=== PATIENT | female | born 1960 | race Caucasian/White ===

== ENCOUNTER 2018-04-10 17:39 | Inpatient (IN) ==
--- NOTE | 2018-04-10 23:13 | P.HPCC ---
History of Present Illness Service: Critical Care Medicine Primary Care Physician: UNKNOWN Chief Complaint: Back and leg pain History of Present Illness: 57-year-old female with past medical history of COPD, diabetes, seizure disorder, hepatitis C, lung cancer status post right upper lobectomy and chemotherapy completed in 2011, ongoing tobacco abuse, chronic pancreatitis , history of alcohol dependence now in remission since 1995. She was transferred to [facility] from [place] due to the concern for cauda equina. She was admitted at [place] on 04/09 after presenting with 2-day history of right-sided back pain radiating down her right leg. She states that she woke up with the pain. Denies trauma. Says she has been able to ambulate on it even while at [facility] but when she is trying to lifted up her leg to get into bed she uses her arms to assist with lifting. She denies urinary retention or incontinence, fecal incontinence, saddle paresthesias. She denies history of similar pain. Denies headache. Had temp 101 upon admission to [place]. She has been on Levaquin for UTI. - Diagnosis (1) Neuropathy (2) Back pain (3) Diabetes (4) COPD (chronic obstructive pulmonary disease) (5) Tobacco abuse (6) Mild protein-energy malnutrition (7) HTN (hypertension) (8) Chronic pancreatitis (9) Hx of cancer of lung Inpatient Certification: I certify that the inpatient services were ordered in accordance with Medicare regulations governing the order. This includes certification that hospital inpatient services are reasonable and necessary and in the case of services not specified as inpatient-only under 42 CFR 419.22(n), that they are appropriately provided as inpatient services in accordance to with the 2-midnight benchmark under 43 CFR 412.3(e) Review of Systems All other systems reviewed negative except as stated in HPI [facility] - History History Provided By: Patient - Medical History Medical History: Medical History (Last Updated 04/11/18 @ 06:45 by Marcie Crespo MD) Anxiety COPD (chronic obstructive pulmonary disease) Chronic pancreatitis Diabetes mellitus Hepatitis C Hx of cancer of lung Seizure disorder Tobacco abuse - Surgical History Surgical History: Surgical History (Last Updated 04/11/18 @ 06:47 by Marcie Crespo MD) H/O exploratory laparotomy H/O resection of small bowel History of partial pancreatectomy History of splenectomy S/P lobectomy of lung - Family History Family History: Family History (Last Updated 04/11/18 @ 00:32 by Marcie Crespo MD) Mother Stroke Dementia Father CAD (coronary artery disease) - Tobacco History Tobacco Use In Past 30 Days: Yes () Smoking Status: Current every day smoker Tobacco Type: Cigarettes - Alcohol History How Often Do You Have a Drink Containing Alcohol: Never - Substance Use Type Alcohol Status: Sustained Remission Comment: alcohol abuse years ago, quit after pancreatitis treatment. Medications and Allergies Allergies Allergy/AdvReac Type Severity Reaction Status Date / Time acetaminophen [From Tylenol] Allergy Intermediate Gastrointestinal Verified 23:45 Upset tramadol Allergy Intermediate Seizures Verified 04/10/18 23:45 Home Medications Medication Instructions Recorded Confirmed Type Multi Vitamin 1 tab/day 04/10/18 History clonazepam 0.5 mg BID 04/10/18 04/10/18 History trazodone 100 mg 04/10/18 History Results - Labs CBC & Chem 7: 04/19/18 07:08 04/20/18 05:57 Exam Vital signs: Intake & Output 04/10/18 04/10/18 04/11/18 06:59 18:59 06:59 Weight 39.9 kg Other: Weight On Admission 39.9 kg Narrative: GENERAL: Undernourished female alert and interactive sitting up in bed. SKIN: Warm and dry. HEAD: Atraumatic. Normocephalic. EYES: Pupils equal and round, reactive. . No scleral icterus. No injection or drainage. ENT: No nasal bleeding or discharge. Mucous membranes pink and moist. NECK: Trachea midline. No JVD. CARDIOVASCULAR: Regular rate and rhythm. No murmurs rubs or gallops. RESPIRATORY: No accessory muscle use. Clear to auscultation. Breath sounds equal bilaterally. On RA. GASTROINTESTINAL: Abdomen soft, non-tender, nondistended. BS present. MUSCULOSKELETAL: Extremities without clubbing, cyanosis, or edema. No obvious deformities. NEUROLOGICAL: Awake and alert. No obvious cranial nerve deficits. Points lateral to L3-L5 on the right as location of pain, radiating along anterior thigh. No erythema, warmth, fluctuance. Pain appears to limit strength exam on the right but 4+/5 R hip flexor/extensor. 5/5 R ankle dorsiflexion, 4+/5 R ankle plantar flexion, 4+ dorsiflexion right first toe. 5/5 throughout LLE and BUE. Sensation intact throughout. Sensation intact perineum. +rectal tone. Caprini VTE Risk Assessment Caprini VTE Risk Assessment: Moderate/High Risk (score >= 2) Caprini Risk Assessment Model: Point Value = 1 Point Value = 2 Point Value = 3 Point Value = 5 Age 41-60 Minor surgery BMI > 25 kg/m2 Swollen legs Varicose veins or History of unexplained or recurrent spontaneous Oral contraceptives or hormone replacement Sepsis (< 1 month) Serious lung disease, including pneumonia (< 1 month) Abnormal pulmonary function Acute myocardial infarction Congestive heart failure (< 1 month) History of inflammatory bowel disease Medical patient at bed rest Age 61-74 Arthroscopic surgery Major open surgery (> 45 min) Laparoscopic surgery (> 45 min) Malignancy Confined to bed (> 72 hours) Immobilizing plaster cast Central venous access Age >= 75 History of VTE Family history of VTE Factor V Leiden Prothrombin [id number] Lupus anticoagulant Anticardiolipin antibodies Elevated serum homocysteine Heparin-induced thrombocytopenia Other congenital or acquired thrombophilia Stroke (< 1 month) Elective arthroplasty Hip, pelvis, or leg fracture Acute spinal cord injury (< 1 month) Prophylaxis Regimen: Total Risk Factor Score Risk Level Prophylaxis Regimen 0-1 Low Early ambulation 2 Moderate Order ONE of the following: *Sequential Compression Device (SCD) *Heparin 5000 units SQ BID 3-4 Higher Order ONE of the following medications: *Heparin 5000 units SQ TID *Enoxaparin/Lovenox 40 mg SQ daily (WT < 150 kg, CrCl > 30 mL/min) *Enoxaparin/Lovenox 30 mg SQ daily (WT < 150 kg, CrCl > 10-29 mL/min) *Enoxaparin/Lovenox 30 mg SQ BID (WT < 150 kg, CrCl > 30 mL/min) AND/OR *Sequential Compression Device (SCD) 5 or more Highest Order ONE of the following medications: *Heparin 5000 units SQ TID (Preferred with Epidurals) *Enoxaparin/Lovenox 40 mg SQ daily (WT < 150 kg, CrCl > 30 mL/min) *Enoxaparin/Lovenox 30 mg SQ daily (WT < 150 kg, CrCl > 10-29 mL/min) *Enoxaparin/Lovenox 30 mg SQ BID (WT < 150 kg, CrCl > 30 mL/min) AND *Sequential Compression Device (SCD) Assessment and Plan - Problem List (1) Neuropathy Code(s): G62.9 - Polyneuropathy, unspecified Status: Chronic (2) Back pain Code(s): M54.9 - Dorsalgia, unspecified Status: Acute (3) Diabetes Code(s): E11.9 - Type 2 diabetes mellitus without complications Status: Chronic (4) COPD (chronic obstructive pulmonary disease) Code(s): J44.9 - Chronic obstructive pulmonary disease, unspecified Status: Chronic (5) Tobacco abuse Code(s): Z72.0 - Tobacco use Status: Chronic (6) Mild protein-energy malnutrition Code(s): E44.1 - Mild protein-calorie malnutrition Status: Chronic (7) HTN (hypertension) Code(s): I10 - Essential (primary) hypertension Status: Chronic (8) Chronic pancreatitis Code(s): K86.1 - Other chronic pancreatitis Status: Chronic (9) Hx of cancer of lung Code(s): Z85.118 - Personal history of other malignant neoplasm of bronchus and lung Status: Acute - Assessment and Plan Plan: NEURO: Back pain MRI from [facility] report states "enhancement of the lumbar roots and suspicion of enhancement of the cauda equina. This may be related to inflammatory neuropathy, arachnoiditis or leptomeningeal carcinomatosis". Neurosurgery aware of transfer and will review imaging when available on PACS. Disc sent to radiology. Check B12/tsh/rpr/esr. Anxiety Oxycodone/Toradol as needed for pain. Dilaudid as needed for breakthrough pain per Continue Klonopin 0.5 mg p.o. twice daily. Continue Neurontin 300 mg p.o. 3 times daily. RESP: COPD Ongoing tobacco abuse Chronic cough Hx lung cancer s/p RU lobectomy Obtain CT chest to evaluate for recurrent lung cancer. Tobacco cessation counseling. CV: Essential hypertension Lisinopril 5 mg p.o. daily GI: Chronic pancreatitis Continue Creon tid Constipation Bowel regimen FEN/RENAL: Voiding. ID: Leukocytosis UTI based on UA at outside hospital. Will request urine culture results. Continue Levaquin [address] abdomen pelvis with nonobstructing renal stones. HEME: Monitor CBC ENDO: Diabetes mellitus, poorly controlled Monitor bedside glucose AC at bedtime and administer medium dose insulin sliding scale as indicated. Detemir 10 units subcu daily PROPH: SCDs for DVT prophylaxis. We will hold pharmacologic DVT prophylaxis until neurosurgery evaluates. Protonix p.o. for stress ulcer prophylaxis. ACCESS: Right upper extremity midline catheter was placed at [facility]. Full code Level 3 H&P
[2018-04-11] MEDS ORDERED: Bisacodyl 10 MG Supp RECTAL PRN (00:34)
[2018-04-11] MEDS: Ketorolac Inj 30 MG/ML (IVP) Vial IV.PUSH PRN ×2 (00:57→14:32)
[2018-04-11 02:01] LABS: Hematocrit 31.1 % (35.0-46.0); Hemoglobin 10.2 gm/dL (11.6-15.3); Mean Corpuscular HGB Conc 32.8 % (32.0-36.0); Mean Corpuscular Hemoglobin 32.8 pg (27.0-34.0); Mean Platelet Volume 8.9 fL (7.0-11.0); Platelet Count 476 th/mm3 (150-450); Red Blood Count 3.11 mil/mm3 (4.00-5.30); Red Cell Distribution Width 13.4 % (11.6-17.2); White Blood Count 14.1 th/mm3 (4.0-11.0)
[2018-04-11 02:30] LABS: Anion Gap 13 meq/L (5-15); Aspartate Aminotransferase 16 U/L (15-37); Blood Urea Nitrogen 13 mg/dL (7-18); Calcium 8.5 mg/dL (8.5-10.1); Carbon Dioxide 23.5 meq/L (21.0-32.0); Chloride 96 meq/L (98-107); Glomerular Filtration Rate 61 mL/min (>89); Glucose,Random 347 mg/dL (74-106); Potassium 3.5 meq/L (3.5-5.1); Sodium 132 meq/L (136-145)
[2018-04-11 02:31] LABS: Alanine Aminotransferase 12 U/L (10-53)
[2018-04-11 02:33] LABS: Alkaline Phosphatase 180 U/L (45-117); Total Protein 6.9 g/dL (6.4-8.2)
[2018-04-11 02:35] LABS: Creatine Kinase 47 U/L (26-192)
[2018-04-11] MEDS ORDERED: Chlorhexidine Gluconate 2% 1 Pack (2 Cloths) TOPICAL PRN (04:00)
[2018-04-11] MEDS: Chlorhexidine Gluconate 2% 1 Pack (2 Cloths) TOPICAL SCH (07:00)
[2018-04-11] MEDS ORDERED: Magnesium Oxide 400 MG Tablet PO PRN (07:09)
[2018-04-11] MEDS ORDERED: Magnesium Sulfate Inj 4 GM in Sodium Chlor 0.9% Inj 92 ML IV.SIG PRN (07:09)
[2018-04-11] MEDS ORDERED: Magnesium Sulfate Inj 2 GM in Sodium Chlor 0.9% Inj 96 ML IV.SIG PRN (07:09)
[2018-04-11] MEDS ORDERED: Sodium Phosphate Inj 30 MMOL in Sodium Chlor 0.9% Inj 250 ML IV.SIG PRN (07:09)
[2018-04-11] MEDS ORDERED: Potassium Chloride 25 MEQ Effervescent Tablet PO PRN (07:09)
[2018-04-11] MEDS ORDERED: Potassium Phosphate Inj 30 MMOL in Sodium Chlor 0.9% Inj 250 ML IV.SIG PRN (07:09)
[2018-04-11] MEDS ORDERED: Potassium Chlor 40 mEq Premix 40 MEQ/100 ML PIGGYBACK IV.SIG PRN ×2 (07:09)
[2018-04-11] MEDS ORDERED: Potassium Chlor 20 mEq Premix 20 MEQ/100 ML PIGGYBACK IV.SIG PRN ×2 (07:09)
[2018-04-11] MEDS ORDERED: Potassium Phosphate 500 MG Soluble Tablet PO PRN ×2 (07:09)
[2018-04-11] MEDS: Senna/Docusate Sodium 8.6/50 MG Tablet PO SCH ×2 (09:39→20:37)
[2018-04-11] MEDS: Gabapentin 300 MG Capsule PO SCH ×3 (09:39→18:14)
[2018-04-11] MEDS: clonazePAM 0.5 MG Tablet PO SCH ×2 (09:39→20:37)
[2018-04-11] MEDS: Lisinopril 5 MG Tablet PO SCH (09:39)
[2018-04-11] MEDS: Tiotropium Bromide 18 MCG/ACT Inhaler INH SCH (09:39)
[2018-04-11] MEDS: HYDROmorphone PF Inj 2 MG/ML Vial IV.PUSH PRN ×3 (09:39→20:37)
[2018-04-11] MEDS: Insulin NovoLOG Aspart Correctional Sugar Inj SQ SCH ×4 (09:40→21:20)
[2018-04-11] MEDS: levoFLOXacin 500 MG Tablet PO SCH (09:40)
[2018-04-11] MEDS: Lipase/Protease/Amylase 12/38/60 DR Capsule PO SCH ×3 (09:40→18:14)
[2018-04-11] MEDS: Insulin Detemir Inj 1,000 UNIT/10 ML Vial SQ SCH (09:41)
--- NOTE | 2018-04-11 15:05 | CT ---
EXAM DATE: 04/11/2018 2:28 PM EDT AGE/SEX: 57 years / Female INDICATIONS: Evaluate for mass. CLINICAL DATA: This is the patient's initial encounter. Patient reports that signs and symptoms have been present for 1 day and indicates a pain score of 0/10. MEDICAL/SURGICAL HISTORY: Chronic obstructive pulmonary disease. Hepatitis C. . Lobectomy right stephania ng. Small bowel resection. Pancreatectomy. RADIATION DOSE: 3.39 CTDI (mGy) COMPARISON: No prior exams available for comparison. TECHNIQUE: Multiple contiguous axial images were obtained through the chest without contrast. Image s were obtained in suspended respiration using multiple row detector helical technique. Using automa torey exposure control and adjustment of the mA and/or kV according to patient size, radiation dose was kept as low as reasonably achievable to obtain optimal diagnostic quality images. DICOM format imag e data is available electronically for review and comparison. FINDINGS: The heart is normal in size. There are surgical clips in the right erasmo. There is no significant erasmo r or mediastinal adenopathy. No pericardial or pleural effusion is evident. No axillary adenopathy is identified. The visualized pulmonary parenchyma demonstrates moderate COPD changes. There is a 3 mm nodule seen i n the right lung apex. There is a 5 mm nodule seen in the more inferior aspect of the right upper lob e. There is a small amount of scarring seen on the lateral margin of the left lower lobe. No suspicio us lesions are identified. The visualized bony structures demonstrate mild degenerative changes in the thoracic spine but are ot herwise intact. CONCLUSION: 1. Moderate COPD changes. 2. There are 2 nodules in the right upper lobe one measuring 3 mm the other measuring 6 mm. These ar e nonspecific. Follow-up CT exam in 6 months to document stability would be warranted. Electronically signed by: Humble Perry MD 04/11/2018 3:03 PM EDT
--- NOTE | 2018-04-11 16:11 | P.CONNS ---
History of Present Illness Primary Care Provider: UNKNOWN Chief Complaint: Back and leg pain History of Present Illness: Ms. Sow is a 57 y/o female with a history of lung cancer (smoker) who presents with a 4 days history of acute onset low back pain radiating into her right lower extremity. She sought medical care two days after the inciting event. She underwent a MRI of the lumbar spine at an outside hospital that was unremarkable with the exception of enhancement of the lumbar nerve roots ( bilaterally) concerning for "arachnoiditis or leptomeningeal carcinomatosis." She was transferred from the outside facility to [facility] for further evaluation. She denies numbness, tingling, left leg pain or weakness, upper extremity pain or weakness, bowel/bladder incontinence. She states that she is able to walk on her right lower extremity but has significant pain. Review of Systems All other systems reviewed negative except as stated in HPI [facility] - History History Provided By: Patient - Medical History Medical History: Medical History (Last Updated 04/11/18 @ 06:45 by Marcie Crespo MD) Anxiety COPD (chronic obstructive pulmonary disease) Chronic pancreatitis Diabetes mellitus Hepatitis C Hx of cancer of lung Seizure disorder Tobacco abuse - Surgical History Surgical History: Surgical History (Last Updated 04/11/18 @ 06:47 by Marcie Crespo MD) H/O exploratory laparotomy H/O resection of small bowel History of partial pancreatectomy History of splenectomy S/P lobectomy of lung - Family History Family History: Family History (Last Updated 04/11/18 @ 00:32 by Marcie Crespo MD) Mother Dementia Stroke Father CAD (coronary artery disease) - Tobacco History Second Hand Smoke Exposure: No Tobacco Use In Past 30 Days: Yes () Smoking Status: Current every day smoker Tobacco Type: Cigarettes - Alcohol History How Often Do You Have a Drink Containing Alcohol: Never - Substance Use History Substance History: Past History - Substance Use Type Alcohol Status: Sustained Remission Comment: alcohol abuse years ago, quit after pancreatitis treatment. Medications and Allergies Active Medications: Active Medications Al Hydroxide/Mg Hydroxide (Milk Of Magngoldy Liq) 30 ml PO Q12H PRN PRN Reason: Mild Constipation Albuterol (Albuterol Neb (Prn)) 2.5 mg NEB Q2HR NEB PRN PRN Reason: SHORTNESS OF BREATH/WHEEZING Lipase/Protease/Amylase (Chance Mitchell ) 1 cap PO TID [facility] Last Admin: 04/11/18 12:48 Dose: 1 cap Bisacodyl (Dulcolax Supp) 10 mg RECTAL DAILY PRN PRN Reason: SEVERE CONSITIPATION Chlorhexidine Gluconate (Chlorhexidine 2% Cloth) 3 pack TOPICAL DAILY@0400 [facility] Stop: 04/16/18 03:59 Last Admin: 04/11/18 07:00 Dose: Not Given Chlorhexidine Gluconate (Chlorhexidine 2% Cloth) 3 pack TOPICAL DAILY@0400 PRN PRN Reason: Extra cloth needed Stop: 04/16/18 03:59 Clonazepam (Klonopin) 0.5 mg PO Q12HR [facility] Last Admin: 04/11/18 09:39 Dose: 0.5 mg Dextrose (D50w Vial) 50 ml IV.PUSH UNSCH PRN PRN Reason: PER HYPOGLYCEMIA PROTOCOL Gabapentin (Neurontin) 300 mg PO TID [facility] Last Admin: 04/11/18 12:48 Dose: 300 mg Glucagon (Glucagon Inj) 1 mg OTHER PRN PRN PRN Reason: for Hypoglycemia Protocol Hydromorphone HCl (Dilaudid Pf Inj) 0.5 mg IV.PUSH Q4H PRN PRN Reason: breakthrough pain 5-10 Last Admin: 04/11/18 14:31 Dose: 0.5 mg Potassium Chloride (Kcl 40 Meq Premix Inj) 40 meq in 100 mls @ 25 mls/hr IV.SIG UNSCH PRN PRN Reason: For Potassium 3.3 - 3.5 mEq/L Magnesium Sulfate 4 gm/ Sodium (Chloride) 100 mls @ 50 mls/hr IV.SIG UNSCH PRN PRN Reason: For Magnesium 0.9 - 1.1 mg/dL Magnesium Sulfate 2 gm/ Sodium (Chloride) 100 mls @ 50 mls/hr IV.SIG UNSCH PRN PRN Reason: For Magnesium 1.2 - 1.6 mg/dL Potassium Chloride (Kcl 40 Meq Premix Inj) 40 meq in 100 mls @ 25 mls/hr IV.SIG Q2H PRN PRN Reason: For Potassium 2.8 - 3.2 mEq/L Potassium Chloride (Kcl 20 Meq Premix Inj) 20 meq in 100 mls @ 50 mls/hr IV.SIG Q2H PRN PRN Reason: For Potassium 3.3 - 3.5 mEq/L Potassium Chloride (Kcl 20 Meq Premix Inj) 20 meq in 100 mls @ 50 mls/hr IV.SIG Q2H PRN PRN Reason: For Potassium 2.8 - 3.2 mEq/L Potassium Phosphate 30 mmol/ (Sodium Chloride) 260 mls @ 42 mls/hr IV.SIG UNSCH PRN PRN Reason: SEE LABEL COMMENTS Sodium Phosphate 30 mmol/ (Sodium Chloride) 260 mls @ 42 mls/hr IV.SIG UNSCH PRN PRN Reason: For Phosphorus < 2.5 mg/dL Insulin Aspart (Novolog Insulin Correctional Sugar Inj) 0 unit SQ ACHS [facility]; Protocol Last Admin: 04/11/18 12:48 Dose: 4 unit Insulin Detemir (Levemir Inj) 10 unit SQ DAILY [facility] Last Admin: 04/11/18 09:41 Dose: 10 unit Ketorolac Tromethamine (Toradol Inj) 15 mg IV.PUSH Q6H PRN PRN Reason: pain Stop: 04/16/18 00:38 Last Admin: 04/11/18 14:32 Dose: 15 mg Lactulose (Lactulose Liq) 30 ml PO DAILY PRN PRN Reason: SEVERE CONSITIPATION Levofloxacin (Levaquin) 500 mg PO DAILY [facility] Last Admin: 04/11/18 09:40 Dose: 500 mg Lisinopril (Prinivil) 5 mg PO DAILY [facility] Last Admin: 04/11/18 09:39 Dose: 5 mg Magnesium Oxide (Mag-Ox) 800 mg PO UNSCH PRN PRN Reason: For Magnesium 1.2 - 1.6 mg/dL Ondansetron HCl (Zofran Inj) 4 mg IV.PUSH Q6H PRN PRN Reason: NAUSEA OR VOMITING Oxycodone HCl (Roxicodone) 5 mg PO Q4H PRN PRN Reason: breakthrough pain 1-4 Last Admin: 04/11/18 05:25 Dose: 5 mg Pantoprazole Sodium (Protonix) 40 mg PO DAILY [facility] Last Admin: 04/11/18 09:39 Dose: 40 mg Phenytoin Sodium (Dilantin) 300 mg PO [facility] Potassium Bicarb/Potassium Chloride (K-Lyte Cl Eff) 50 meq PO UNSCH PRN PRN Reason: For Potassium 3.3 - 3.5 mEq/L Potassium Phosphate (K-Phos Original) 2,000 mg PO Q4H PRN PRN Reason: Phosphorus Less Than 2.5 mg/dL Potassium Phosphate (K-Phos Original) 2,000 mg PO UNSCH PRN PRN Reason: SEE LABEL COMMENTS Senna/Docusate Sodium (Roma-Colace) 1 tab PO BID [facility] Last Admin: 04/11/18 09:39 Dose: 1 tab Sennosides (Senokot) 17.2 mg PO Q12H PRN PRN Reason: Moderate Constipation Sodium Chloride (Ns Flush) 2 ml IV.FLUSH BID [facility] Last Admin: 04/11/18 09:41 Dose: 2 ml Sodium Chloride (Ns Flush) 2 ml IV.FLUSH PRN PRN PRN Reason: FLUSH AFTER USING IV ACCESS Tiotropium [place] (Spiriva 18 Mcg Inh) 18 mcg INH DAILY [facility] Last Admin: 04/11/18 09:39 Dose: 18 mcg Allergies Allergy/AdvReac Type Severity Reaction Status Date / Time acetaminophen [From Tylenol] Allergy Intermediate Gastrointestinal Verified 23:45 Upset tramadol Allergy Intermediate Seizures Verified 04/10/18 23:45 Home Medications Medication Instructions Recorded Confirmed Type Creon 2,400 units 04/10/18 History Dilantin 300 mg HS 04/10/18 04/10/18 History Humalog U-100 Insulin See Protocol SUBCUT 04/10/18 History Lantus U-100 Insulin 10 units QAM 04/10/18 04/10/18 History Multi Vitamin 1 tab/day 04/10/18 History clonazepam 0.5 mg BID 04/10/18 04/10/18 History trazodone 100 mg 04/10/18 History Exam Vital signs: Vital Signs 04/11/18 01:00 04/11/18 02:00 04/11/18 03:00 Temperature Pulse Rate 108 H 104 H 90 Respiratory Rate 16 17 16 Blood Pressure 167/73 H 165/74 H 110/84 Pulse Oximetry 100 98 04/11/18 04:00 04/11/18 05:00 04/11/18 06:00 Temperature 98.4 F 98.4 F Pulse Rate 92 H 94 H 92 H Respiratory Rate 24 17 24 Blood Pressure 136/60 164/67 H 136/60 Pulse Oximetry 99 100 99 04/11/18 06:59 04/11/18 07:02 04/11/18 08:00 Temperature Pulse Rate 106 H Respiratory Rate 14 15 Blood Pressure Pulse Oximetry 04/11/18 12:00 04/11/18 15:01 04/11/18 15:02 Temperature 98.2 F Pulse Rate 100 H Respiratory Rate 18 16 16 Blood Pressure 97/57 L Pulse Oximetry 100 Intake & Output 04/10/18 04/11/18 04/11/18 18:59 06:59 18:59 Weight 39.9 kg Other: # Voids 3 Date of Last Bowel Movement 04/07/18 Weight On Admission 39.9 kg Narrative: Opens eyes spontaneously Bright and awake Alert and oriented x3 Sitting comfortably in bed 5/5 strength upper extremities 5/5 strength left lower extremity 4-/5 right iliopsoas (pain limited), 4/5 right quadriceps (pain limited), otherwise 5/5 strength Reflexes: 2/4 at the patella and achilles No palpable right dorsalis pedis or posterior tibialis pulse; bounding pulses on the left foot Legs symmetric in terms of size and temperature. Results - Laboratory Findings CBC and BMP: 04/11/18 01:25 04/11/18 01:25 Abnormal lab findings: Abnormal Labs 04/11/18 04/11/18 04/11/18 01:25 01:25 01:25 WBC 14.1 H RBC 3.11 L Hgb 10.2 L Hct 31.1 L Plt Count 476 H ESR 112 H Sodium 132 L Chloride 96 L Estimated GFR 61 L POC Glucose Random Glucose 347 H Alkaline Phosphatase 180 H Albumin 2.0 L 04/11/18 04/11/18 04/11/18 07:59 12:20 14:09 WBC RBC Hgb Hct Plt Count ESR Sodium Chloride Estimated GFR POC Glucose 385 H 243 H 205 H Random Glucose Alkaline Phosphatase Albumin - Diagnostic Findings Additional findings: MRI of the lumbar spine from outside hospital reviewed (unable to load into [facility] PACS, but reviewed outside disc on workstation). No evidence of disc herniation, canal stenosis, or mass on the thecal sac. Post-contrast study with subtle enhancement of the bilateral lumber nerve roots and the region of the cauda equina. Assessment and Plan - Plan 57 y/o female with acute onset low back pain radiating into the right lower extremity without a precipitating event ("I woke up like this.") MRI of the lumbar spine without evidence of mass lesion, but radiologist reports concern for enhancement of the lumbar nerve roots and cauda equina. On personal review , I find this difficult to perceive, but the imaging study is not high quality. She has asymmetry in her distal extremity pulses (left palpable, right not palpable). It is conceivable that her pain may be of vascular etiology. I spoke with the eligibility and occupancy interviewer, Dr. Mccarthy, and suggested an imaging study to assess blood flow in her lower extremities. If this is negative, then I would proceed with a thoracic MRI to evaluate for a more rostral lesion that may account for her symptoms, although given the lack of thoracic sensory levels and myelopathy on exam, I find it unlikely to yield much information. Plan: Vascular imaging to evaluate lower extremity blood flow. Thoracic MRI if vascular imaging is unremarkable.
--- NOTE | 2018-04-11 17:49 | P.PNCC ---
Subjective Subjective Remarks/Hospital Course: 04/10: 57-year-old female with past medical history of COPD, diabetes , seizure disorder, hepatitis C, lung cancer status post right upper lobectomy and chemotherapy completed in 2011, ongoing tobacco abuse, chronic pancreatitis , history of alcohol dependence now in remission since 1995. She was transferred to [facility] from [place] due to the concern for cauda equina. She was admitted at [place] on 04/09 after presenting with 2-day history of right-sided back pain radiating down her right leg. She states that she woke up with the pain. Denies trauma. Says she has been able to ambulate on it even while at [facility] but when she is trying to lifted up her leg to get into bed she uses her arms to assist with lifting. She denies urinary retention or incontinence, fecal incontinence, saddle paresthesias. She denies history of similar pain. Denies headache. Had temp 101 upon admission to [place]. She has been on Levaquin for UTI. 04/11: Mildly elevated white blood cell count, sed rate 100. Remains afebrile. MRI does not obviously implicate a source for right leg discomfort. Right leg remains warm. We will obtain arterial Dopplers of the lower extremities to look specifically for inflow reduction at the iliofemoral level. For purposes of completeness, should the arterial studies does not indicate any cause, we will obtain thoracic MRI as suggested by the neuro surgery service. Patient otherwise remained stable. - Diagnosis (1) Neuropathy (2) Back pain (3) Diabetes (4) COPD (chronic obstructive pulmonary disease) (5) Tobacco abuse (6) Mild protein-energy malnutrition (7) HTN (hypertension) (8) Chronic pancreatitis Objective Vital Signs / I&O: Vital Signs 04/11/18 01:00 04/11/18 02:00 04/11/18 03:00 Temperature Pulse Rate 108 H 104 H 90 Respiratory Rate 16 17 16 Blood Pressure 167/73 H 165/74 H 110/84 Pulse Oximetry 100 98 04/11/18 04:00 04/11/18 05:00 04/11/18 06:00 Temperature 98.4 F 98.4 F Pulse Rate 92 H 94 H 92 H Respiratory Rate 24 17 24 Blood Pressure 136/60 164/67 H 136/60 Pulse Oximetry 99 100 99 04/11/18 06:59 04/11/18 07:02 04/11/18 08:00 Temperature Pulse Rate 106 H Respiratory Rate 14 15 Blood Pressure Pulse Oximetry 04/11/18 12:00 04/11/18 15:01 04/11/18 15:02 Temperature 98.2 F Pulse Rate 100 H Respiratory Rate 18 16 16 Blood Pressure 97/57 L Pulse Oximetry 100 Intake & Output 04/10/18 04/11/18 04/11/18 18:59 06:59 18:59 Weight 39.9 kg Other: # Voids 3 Date of Last Bowel Movement 04/07/18 Weight On Admission 39.9 kg Result Diagrams: 04/11/18 01:25 04/11/18 01:25 Objective Remarks: Narrative: GENERAL: Undernourished female, alert and interactive sitting up in bed. Conversant. SKIN: Warm and dry. HEAD: Atraumatic. Normocephalic. EYES: Pupils equal and round, reactive. . No scleral icterus. No injection or drainage. ENT: No nasal bleeding or discharge. Mucous membranes pink and moist. NECK: Trachea midline. Airway widely patent. CARDIOVASCULAR: Regular rate and rhythm. No murmurs rubs or gallops. No JVD. RESPIRATORY: No accessory muscle use. Clear to auscultation. Breath sounds equal bilaterally. Well oxygenated on room air. GASTROINTESTINAL: Abdomen soft, non-tender, nondistended. BS present. No guarding. MUSCULOSKELETAL: Extremities without clubbing, cyanosis, or edema. No obvious deformities. Warm, well-perfused. NEUROLOGICAL: Awake and alert. No obvious cranial nerve deficits. Points lateral to L3-L5 on the right as location of pain, radiating along anterior thigh. No erythema, warmth, fluctuance. Pain appears to limit strength exam on the right but 4+/5 R hip flexor/extensor. 5/5 R ankle dorsiflexion, 4+/5 R ankle plantar flexion, 4+ dorsiflexion right first toe. 5/5 throughout LLE and BUE. Sensation intact throughout. Sensation intact perineum. +rectal tone. Assessment and Plan - Problem List (1) Neuropathy Code(s): G62.9 - Polyneuropathy, unspecified Status: Chronic (2) Back pain Code(s): M54.9 - Dorsalgia, unspecified Status: Acute (3) Diabetes Code(s): E11.9 - Type 2 diabetes mellitus without complications Status: Chronic (4) COPD (chronic obstructive pulmonary disease) Code(s): J44.9 - Chronic obstructive pulmonary disease, unspecified Status: Chronic (5) Tobacco abuse Code(s): Z72.0 - Tobacco use Status: Chronic (6) Mild protein-energy malnutrition Code(s): E44.1 - Mild protein-calorie malnutrition Status: Chronic (7) HTN (hypertension) Code(s): I10 - Essential (primary) hypertension Status: Chronic (8) Chronic pancreatitis Code(s): K86.1 - Other chronic pancreatitis Status: Chronic - Assessment and Plan Plan: NEURO: Back pain MRI from [place] report states "enhancement of the lumbar roots and suspicion of enhancement of the cauda equina. This may be related to inflammatory neuropathy, arachnoiditis or leptomeningeal carcinomatosis". Evaluation by neurosurgical service today and review of outside MRI does not implicate same. Check B12/tsh/rpr/esr. Anxiety Oxycodone/Toradol as needed for pain. Dilaudid as needed for breakthrough pain per Continue Klonopin 0.5 mg p.o. twice daily. Continue Neurontin 300 mg p.o. 3 times daily. RESP: COPD Ongoing tobacco abuse Chronic cough Hx lung cancer s/p RU lobectomy Obtain CT chest to evaluate for recurrent lung cancer. Tobacco cessation counseling. CV: Essential hypertension Lisinopril 5 mg p.o. daily GI: Chronic pancreatitis Continue Creon tid Constipation Bowel regimen FEN/RENAL: Voiding. ID: Leukocytosis UTI based on UA at outside hospital. Will request urine culture results. Continue Levaquin [address] abdomen pelvis with nonobstructing renal stones. HEME: Monitor CBC ENDO: Diabetes mellitus, poorly controlled Monitor bedside glucose AC at bedtime and administer medium dose insulin sliding scale as indicated. Detemir 10 units subcu daily PROPH: SCDs for DVT prophylaxis. We will hold pharmacologic DVT prophylaxis until neurosurgery evaluates. Protonix p.o. for stress ulcer prophylaxis. ACCESS: Right upper extremity midline catheter was placed at [facility]. Overall impression: Aside from an elevated sedimentation rate and mild elevation of white cell count the woman appears chronically nutritionally depleted. Glucose is poorly controlled. In talking with family the patient has had a complex long-term relationship with pain control. The neurosurgical service does not feel the cause of her pain is nerve root compression or cord impingement, at least not in the lumbar region. I suspect the renal calculi is largely a incidental finding. We are obtaining arterial inflow studies of the lower extremities to rule out arterial obstruction and will follow with a CTA of the abdomen and lower extremities should there be any suggestion of inflow problems. Should that be normal we will obtain a MRI of the thoracic spine by the neurosurgical consult.
[2018-04-11] MEDS: Phenytoin Sodium 100 MG Capsule PO SCH (20:37)
[2018-04-12] MEDS: HYDROmorphone PF Inj 2 MG/ML Vial IV.PUSH PRN ×6 (00:48→23:11)
[2018-04-12 05:01] LABS: Baso # (Auto) 0.1 th/mm3 (0.0-0.2); Eos # (Auto) 0.2 th/mm3 (0.0-0.4); Eos % (Auto) 1.4 % (0.0-4.0); Hematocrit 30.5 % (35.0-46.0); Lymph # (Auto) 1.9 th/mm3 (1.0-4.8); Lymph % (Auto) 15.3 % (9.0-44.0); Mean Corpuscular HGB Conc 32.8 % (32.0-36.0); Mean Corpuscular Hemoglobin 32.8 pg (27.0-34.0); Mean Corpuscular Volume 100.1 fL (80.0-100.0); Mean Platelet Volume 8.2 fL (7.0-11.0); Mono # (Auto) 1.2 th/mm3 (0.0-0.9); Neut # (Auto) 8.9 th/mm3 (1.8-7.7); Neut % (Auto) 72.3 % (16.0-70.0); Platelet Count 483 th/mm3 (150-450); Red Blood Count 3.05 mil/mm3 (4.00-5.30); Red Cell Distribution Width 13.6 % (11.6-17.2); White Blood Count 12.3 th/mm3 (4.0-11.0)
[2018-04-12] MEDS: Chlorhexidine Gluconate 2% 1 Pack (2 Cloths) TOPICAL SCH (05:28)
[2018-04-12] MEDS: Insulin NovoLOG Aspart Correctional Sugar Inj SQ SCH ×4 (09:37→20:38)
[2018-04-12] MEDS: Lisinopril 5 MG Tablet PO SCH (09:38)
[2018-04-12] MEDS: Insulin Detemir Inj 1,000 UNIT/10 ML Vial SQ SCH (09:38)
[2018-04-12] MEDS: levoFLOXacin 500 MG Tablet PO SCH (09:38)
[2018-04-12] MEDS: Gabapentin 300 MG Capsule PO SCH ×3 (09:39→18:02)
[2018-04-12] MEDS: clonazePAM 0.5 MG Tablet PO SCH ×2 (09:39→20:09)
[2018-04-12] MEDS: Senna/Docusate Sodium 8.6/50 MG Tablet PO SCH ×2 (09:39→20:09)
[2018-04-12] MEDS: Tiotropium Bromide 18 MCG/ACT Inhaler INH SCH (09:40)
[2018-04-12] MEDS: Lipase/Protease/Amylase 12/38/60 DR Capsule PO SCH ×3 (09:47→18:03)
--- NOTE | 2018-04-12 11:26 | P.PNNS ---
Subjective Interval history: No acute events overnight. Physical Exam Vital signs: Vital Signs 04/11/18 12:00 04/11/18 15:01 04/11/18 15:02 Temperature 98.2 F Pulse Rate 100 H Respiratory Rate 18 16 16 Blood Pressure 97/57 L Pulse Oximetry 100 04/11/18 16:00 04/11/18 18:44 04/11/18 20:00 Temperature 98.4 F 98.5 F Pulse Rate 90 91 H Respiratory Rate 14 14 13 Blood Pressure 130/66 146/65 H Pulse Oximetry 100 98 04/11/18 21:07 04/12/18 00:00 04/12/18 10:47 Temperature 97.9 F Pulse Rate 109 H Respiratory Rate 13 17 16 Blood Pressure 144/65 H Pulse Oximetry 94 L Intake & Output 04/11/18 04/12/18 04/12/18 18:59 06:59 18:59 Intake Total 960 / 960 480 / 480 Balance 960 / 960 480 / 480 Weight 39.9 kg Intake: Oral 960 / 960 480 / 480 Other: # Voids 2 5 Date of Last Bowel Movement 04/11/18 # Bowel Movements 0 3 Narrative: Opens eyes spontaneously Bright and awake Alert and oriented x3 Sitting comfortably in bed 5/5 strength upper extremities 5/5 strength left lower extremity 4/5 right iliopsoas (pain limited), 4+/5 right quadriceps (pain limited), otherwise 5/5 strength Assessment and Plan - Plan 57 y/o female with acute onset low back pain radiating into the right lower extremity without a precipitating event ("I woke up like this.") MRI of the lumbar spine without evidence of mass lesion, but radiologist reports concern for enhancement of the lumbar nerve roots and cauda equina. On personal review , I find this difficult to perceive, but the imaging study is not high quality. She has asymmetry in her distal extremity pulses (left palpable, right not palpable). It is conceivable that her pain may be of vascular etiology. I spoke with the womens volleyball coach, Dr. Mccarthy on 04/11, and suggested an imaging study to assess blood flow in her lower extremities. If this is negative, then I would proceed with a thoracic MRI to evaluate for a more rostral lesion that may account for her symptoms, although given the lack of thoracic sensory levels and myelopathy on exam, I find it unlikely to yield much information. She reports pain is improved today (04/12), but still present. Plan: Vascular imaging to evaluate lower extremity blood flow (pending). Thoracic MRI if vascular imaging is unremarkable.
--- NOTE | 2018-04-12 15:02 | P.PNIM ---
Subjective Interval history: 04/10: 57-year-old female with past medical history of COPD, diabetes , seizure disorder, hepatitis C, lung cancer status post right upper lobectomy and chemotherapy completed in 2011, ongoing tobacco abuse, chronic pancreatitis , history of alcohol dependence now in remission since 1995. She was transferred to [facility] from [place] due to the concern for cauda equina. She was admitted at [place] on 04/09 after presenting with 2-day history of right-sided back pain radiating down her right leg. She states that she woke up with the pain. Denies trauma. Says she has been able to ambulate on it even while at [facility] but when she is trying to lifted up her leg to get into bed she uses her arms to assist with lifting. She denies urinary retention or incontinence, fecal incontinence, saddle paresthesias. She denies history of similar pain. Denies headache. Had temp 101 upon admission to [place]. She has been on Levaquin for UTI. 04/11: Mildly elevated white blood cell count, sed rate 100. Remains afebrile. MRI does not obviously implicate a source for right leg discomfort. Right leg remains warm. We will obtain arterial Dopplers of the lower extremities to look specifically for inflow reduction at the iliofemoral level. For purposes of completeness, should the arterial studies does not indicate any cause, we will obtain thoracic MRI as suggested by the neuro surgery service. Patient otherwise remained stable. 04-12 TRANSFERRED TO OUR SERVICE TODAY DW RN AND PT AND CM STILL NEEDS ARTERIAL DOPPLERS OF THE LOWER EXTREMITIES -NOT DONE YET MAY NEED THORACIC MRI IF INCONCLUSIVE PT AND OT LESS PAIN CURRENTLY Physical Exam Vital signs: Vital Signs 04/11/18 15:01 04/11/18 15:02 04/11/18 16:00 Temperature 98.4 F Pulse Rate 90 Respiratory Rate 16 16 14 Blood Pressure 130/66 Pulse Oximetry 100 04/11/18 18:44 04/11/18 20:00 04/11/18 21:07 Temperature 98.5 F Pulse Rate 91 H Respiratory Rate 14 13 13 Blood Pressure 146/65 H Pulse Oximetry 98 04/12/18 00:00 04/12/18 10:47 Temperature 97.9 F Pulse Rate 109 H Respiratory Rate 17 16 Blood Pressure 144/65 H Pulse Oximetry 94 L Intake & Output 04/11/18 04/12/18 04/12/18 18:59 06:59 18:59 Intake Total 960 / 960 480 / 480 Balance 960 / 960 480 / 480 Weight 39.9 kg Intake: Oral 960 / 960 480 / 480 Other: # Voids 2 5 Date of Last Bowel Movement 04/11/18 # Bowel Movements 0 3 Narrative: GENERAL: Undernourished female, alert and interactive sitting up in bed. Conversant. SKIN: Warm and dry. HEAD: Atraumatic. Normocephalic. EYES: Pupils equal and round, reactive. . No scleral icterus. No injection or drainage. ENT: No nasal bleeding or discharge. Mucous membranes pink and moist. NECK: Trachea midline. Airway widely patent. CARDIOVASCULAR: Regular rate and rhythm. No murmurs rubs or gallops. No JVD. RESPIRATORY: No accessory muscle use. Clear to auscultation. Breath sounds equal bilaterally. Well oxygenated on room air. GASTROINTESTINAL: Abdomen soft, non-tender, nondistended. BS present. No guarding. MUSCULOSKELETAL: Extremities without clubbing, cyanosis, or edema. No obvious deformities. Warm, well-perfused. NEUROLOGICAL: Awake and alert. No obvious cranial nerve deficits. Points lateral to L3-L5 on the right as location of pain, radiating along anterior thigh. No erythema, warmth, fluctuance. Pain appears to limit strength exam on the right but 4+/5 R hip flexor/extensor. 5/5 R ankle dorsiflexion, 4+/5 R ankle plantar flexion, 4+ dorsiflexion right first toe. 5/5 throughout LLE and BUE. Sensation intact throughout. Sensation intact perineum. Results - Labs CBC & Chem 7: 04/12/18 04:38 04/11/18 01:25 Laboratory Results - last 24 hr 04/11/18 04/11/18 04/12/18 17:57 21:09 04:38 WBC 12.3 H RBC 3.05 L Hgb 10.0 L Hct 30.5 L MCV 100.1 H MCH 32.8 MCHC 32.8 RDW 13.6 Plt Count 483 H MPV 8.2 Neut % (Auto) 72.3 H Lymph % (Auto) 15.3 Worth % (Auto) 10.0 H Eos % (Auto) 1.4 Baso % (Auto) 1.0 Neut # (Auto) 8.9 H Lymph # (Auto) 1.9 Worth # (Auto) 1.2 H Eos # (Auto) 0.2 Baso # (Auto) 0.1 WBC Differential . Differential Comment Auto diff final POC Glucose 88 158 H 04/12/18 04/12/18 08:48 11:48 WBC RBC Hgb Hct MCV MCH MCHC RDW Plt Count MPV Neut % (Auto) Lymph % (Auto) Worth % (Auto) Eos % (Auto) Baso % (Auto) Neut # (Auto) Lymph # (Auto) Worth # (Auto) Eos # (Auto) Baso # (Auto) WBC Differential Differential Comment POC Glucose 290 H 264 H Microbiology 04/11/18 01:25 Blood - Peripheral Aerobic Blood Culture - Preliminary No growth in 1 day 04/11/18 01:25 Blood - Peripheral Anaerobic Blood Culture - Preliminary No growth in 1 day 04/11/18 01:34 Blood - Peripheral Aerobic Blood Culture - Preliminary No growth in 1 day 04/11/18 01:34 Blood - Peripheral Anaerobic Blood Culture - Preliminary No growth in 1 day - Imaging Impressions Chest CT 04/11/18 00:00 CONCLUSION: 1. Moderate COPD changes. 2. There are 2 nodules in the right upper lobe one measuring 3 mm the other measuring 6 mm. These are nonspecific. Follow-up CT exam in 6 months to document stability would be warranted. Assessment and Plan - Plan NEURO: Back pain MRI from [place] report states "enhancement of the lumbar roots and suspicion of enhancement of the cauda equina. This may be related to inflammatory neuropathy, arachnoiditis or leptomeningeal carcinomatosis". Evaluation by neurosurgical service today and review of outside MRI does not implicate same. Check B12/tsh/rpr/esr. Anxiety Oxycodone/Toradol as needed for pain. Dilaudid as needed for breakthrough pain per Continue Klonopin 0.5 mg p.o. twice daily. Continue Neurontin 300 mg p.o. 3 times daily. RESP: COPD Ongoing tobacco abuse Chronic cough Hx lung cancer s/p RU lobectomy Obtain CT chest to evaluate for recurrent lung cancer. Tobacco cessation counseling. CV: Essential hypertension Lisinopril 5 mg p.o. daily GI: Chronic pancreatitis Continue Creon tid Constipation Bowel regimen FEN/RENAL: Voiding. ID: Leukocytosis UTI based on UA at outside hospital. Will request urine culture results. Continue Levaquin [address] abdomen pelvis with nonobstructing renal stones. HEME: Monitor CBC ENDO: Diabetes mellitus, poorly controlled Monitor bedside glucose AC at bedtime and administer medium dose insulin sliding scale as indicated. Detemir 10 units subcu daily PROPH: SCDs for DVT prophylaxis. We will hold pharmacologic DVT prophylaxis until neurosurgery evaluates. Protonix p.o. for stress ulcer prophylaxis. ACCESS: Right upper extremity midline catheter was placed at [facility]. Overall impression: Aside from an elevated sedimentation rate and mild elevation of white cell count the woman appears chronically nutritionally depleted. Glucose is poorly controlled. In talking with family the patient has had a complex long-term relationship with pain control. The neurosurgical service does not feel the cause of her pain is nerve root compression or cord impingement, at least not in the lumbar region. I suspect the renal calculi is largely a incidental finding. We are obtaining arterial inflow studies of the lower extremities to rule out arterial obstruction and will follow with a CTA of the abdomen and lower extremities should there be any suggestion of inflow problems. Should that be normal we will obtain a MRI of the thoracic spine by the neurosurgical consult. PT AND OT Code Status: FULL CODE Discussed Condition With: ALBIN RN AND CM AND PT Discharge Planning: PENDING SURGERY
[2018-04-12] MEDS: Phenytoin Sodium 100 MG Capsule PO SCH (20:08)
[2018-04-13] MEDS: HYDROmorphone PF Inj 2 MG/ML Vial IV.PUSH PRN ×4 (04:53→18:11)
[2018-04-13] MEDS: Chlorhexidine Gluconate 2% 1 Pack (2 Cloths) TOPICAL SCH (06:48)
[2018-04-13 07:23] LABS: Baso # (Auto) 0.1 th/mm3 (0.0-0.2); Baso % (Auto) 0.9 % (0.0-2.0); Eos # (Auto) 0.2 th/mm3 (0.0-0.4); Eos % (Auto) 1.4 % (0.0-4.0); Hematocrit 30.1 % (35.0-46.0); Hemoglobin 9.9 gm/dL (11.6-15.3); Lymph # (Auto) 1.7 th/mm3 (1.0-4.8); Lymph % (Auto) 12.9 % (9.0-44.0); Mean Corpuscular HGB Conc 32.7 % (32.0-36.0); Mean Corpuscular Hemoglobin 32.6 pg (27.0-34.0); Mean Corpuscular Volume 99.8 fL (80.0-100.0); Mean Platelet Volume 8.5 fL (7.0-11.0); Mono # (Auto) 1.1 th/mm3 (0.0-0.9); Mono % (Auto) 8.3 % (0.0-8.0); Neut # (Auto) 9.9 th/mm3 (1.8-7.7); Neut % (Auto) 76.5 % (16.0-70.0); Platelet Count 528 th/mm3 (150-450); Red Blood Count 3.02 mil/mm3 (4.00-5.30); Red Cell Distribution Width 13.5 % (11.6-17.2); White Blood Count 12.9 th/mm3 (4.0-11.0)
[2018-04-13 07:53] LABS: Albumin 2.1 g/dL (3.4-5.0); Anion Gap 10 meq/L (5-15); Aspartate Aminotransferase 25 U/L (15-37); Blood Urea Nitrogen 19 mg/dL (7-18); Chloride 102 meq/L (98-107); Glomerular Filtration Rate 48 mL/min (>89); Glucose,Random 243 mg/dL (74-106); Magnesium 1.7 mg/dL (1.5-2.5); Sodium 135 meq/L (136-145)
[2018-04-13 08:00] LABS: Alanine Aminotransferase 12 U/L (10-53); Alkaline Phosphatase 137 U/L (45-117); Free T4 (Free Thyroxine) 1.56 ng/dL (0.76-1.46); Phosphorus 2.8 mg/dL (2.5-4.9); Thyroid Stimulating Hormone 0.677 uIU/mL (0.358-3.740); Total Protein 6.9 g/dL (6.4-8.2)
[2018-04-13] MEDS: Insulin NovoLOG Aspart Correctional Sugar Inj SQ SCH ×4 (08:00→20:55)
[2018-04-13] MEDS: Insulin Detemir Inj 1,000 UNIT/10 ML Vial SQ SCH (08:09)
[2018-04-13] MEDS: levoFLOXacin 500 MG Tablet PO SCH (08:11)
[2018-04-13] MEDS: Lisinopril 5 MG Tablet PO SCH (08:11)
[2018-04-13] MEDS: Gabapentin 300 MG Capsule PO SCH ×3 (08:11→17:40)
[2018-04-13] MEDS: clonazePAM 0.5 MG Tablet PO SCH ×2 (08:11→20:22)
[2018-04-13] MEDS: Lipase/Protease/Amylase 12/38/60 DR Capsule PO SCH ×3 (08:11→17:40)
[2018-04-13] MEDS: Senna/Docusate Sodium 8.6/50 MG Tablet PO SCH ×2 (08:11→20:22)
--- NOTE | 2018-04-13 11:25 | P.PNNS ---
Subjective Interval history: Persistent back pain with radiation to right proximal leg and prox leg weakness. Ambulating with PT Physical Exam Vital signs: Vital Signs 04/12/18 16:00 04/12/18 18:00 04/12/18 20:00 Temperature 98 F 99.8 F H Pulse Rate 115 H 103 H Respiratory Rate 18 16 18 Blood Pressure 118/64 141/56 H Pulse Oximetry 91 L 96 04/13/18 00:00 04/13/18 08:00 Temperature 98.9 F 99.1 F Pulse Rate 95 H 102 H Respiratory Rate 18 16 Blood Pressure 113/54 L 151/69 H Pulse Oximetry 96 96 Intake & Output 04/12/18 04/13/18 04/13/18 18:59 06:59 18:59 Intake Total 960 / 960 Balance 960 / 960 Weight 35.3 kg Intake: Oral 960 / 960 Other: # Voids 4 Date of Last Bowel Movement 04/13/18 # Bowel Movements 2 Narrative: Opens eyes spontaneously Bright and awake Alert and oriented x3 Sitting comfortably in bed 5/5 strength upper extremities 5/5 strength left lower extremity 4/5 right iliopsoas (pain limited), 4+/5 right quadriceps (pain limited), otherwise 5/5 strength Assessment and Plan - Plan Fithian 04/12/18 57 y/o female with acute onset low back pain radiating into the right lower extremity without a precipitating event ("I woke up like this.") MRI of the lumbar spine without evidence of mass lesion, but radiologist reports concern for enhancement of the lumbar nerve roots and cauda equina. On personal review , I find this difficult to perceive, but the imaging study is not high quality. She has asymmetry in her distal extremity pulses (left palpable, right not palpable). It is conceivable that her pain may be of vascular etiology. I spoke with the room designer, Dr. Mccarthy on 04/11, and suggested an imaging study to assess blood flow in her lower extremities. If this is negative, then I would proceed with a thoracic MRI to evaluate for a more rostral lesion that may account for her symptoms, although given the lack of thoracic sensory levels and myelopathy on exam, I find it unlikely to yield much information. She reports pain is improved today (04/12), but still present. 04/13/18: Thoracic MRI Vascular testing today Unclear etiology of weakness (potentially a diabetic amyotrophy but this is not quite consistent).
[2018-04-13] MEDS: Tiotropium Bromide 18 MCG/ACT Inhaler INH SCH (12:06)
[2018-04-13] MEDS ORDERED: Gadobutrol PF 2 MMOL/2 ML Vial (for RAD) IV.SIG ONE (13:46)
--- NOTE | 2018-04-13 15:06 | MR ---
EXAM DATE: 04/13/2018 12:42 PM EDT AGE/SEX: 57 years / Female INDICATIONS: . Right sided back pain radiating to flank and right leg. CLINICAL DATA: This is the patient's subsequent encounter. Patient reports that signs and symptoms h ave been present for 2 days and indicates a pain score of 3/10. MEDICAL/SURGICAL HISTORY: Hepatitis C. Carcinoma, lung. Diabetes mellitus type II. seizures Splenectomy. partial pancreatectomy, small bowel resection, RUL lobectomy COMPARISON: No prior exams available for comparison. TECHNIQUE: Multiplanar, multisequence MRI of the thoracic spine was performed without and with 3 ml Gadavist (gadobutrol) contrast as a single exam dose. FINDINGS: Vertebrae: Normal vertebral body height. Homogeneous marrow signal. Alignment: Normal. Cord: Normal position and configuration. Post Contrast: No abnormal areas of enhancement are seen in the cord, dural or paraspinal regions. T1-T2: The thecal sac has a normal diameter. No evidence of disc bulge or protrusion. T2-T3: The thecal sac has a normal diameter. No evidence of disc bulge or protrusion. T3-T4: The thecal sac has a normal diameter. No evidence of disc bulge or protrusion. T4-T5: The thecal sac has a normal diameter. No evidence of disc bulge or protrusion. T5-T6: The thecal sac has a normal diameter. No evidence of disc bulge or protrusion. T6-T7: The thecal sac has a normal diameter. No evidence of disc bulge or protrusion. T7-T8: The thecal sac has a normal diameter. No evidence of disc bulge or protrusion. T8-T9: The thecal sac has a normal diameter. No evidence of disc bulge or protrusion. T9-T10: The thecal sac has a normal diameter. No evidence of disc bulge or protrusion. T10-T11: The thecal sac has a normal diameter. No evidence of disc bulge or protrusion. T11-T12: Mild desiccation of the T11-T12 disc without significant herniation or neural impingement. T12-L1: The thecal sac has a normal diameter. No evidence of disc bulge or protrusion. CONCLUSION: 1. Mild desiccation of the T11-T12 disc otherwise negative. I do not see an etiology for the patient 's right flank and leg pain. 2. Signal intensity in the cord is normal. Electronically signed by: Toby Perry MD 04/13/2018 3:04 PM EDT
[2018-04-13 16:33] LABS: Hemoglobin A1c 8.9 % (4.3-6.0)
[2018-04-13] MEDS: Dextrose 50% in Water 50 ML Vial IV.PUSH PRN (18:38)
[2018-04-13] MEDS: Phenytoin Sodium 100 MG Capsule PO SCH (20:22)
[2018-04-14] MEDS: Acetaminophen 325 MG Tablet PO PRN ×2 (00:26→08:13)
[2018-04-14] MEDS: HYDROmorphone PF Inj 2 MG/ML Vial IV.PUSH PRN ×5 (03:43→21:23)
[2018-04-14] MEDS: Chlorhexidine Gluconate 2% 1 Pack (2 Cloths) TOPICAL SCH (06:10)
[2018-04-14] MEDS: Lisinopril 5 MG Tablet PO SCH (08:11)
[2018-04-14] MEDS: Senna/Docusate Sodium 8.6/50 MG Tablet PO SCH ×2 (08:11→20:23)
[2018-04-14] MEDS: clonazePAM 0.5 MG Tablet PO SCH ×2 (08:12→20:23)
[2018-04-14] MEDS: levoFLOXacin 500 MG Tablet PO SCH (08:12)
[2018-04-14] MEDS: Gabapentin 300 MG Capsule PO SCH ×3 (08:12→17:04)
[2018-04-14] MEDS: Lipase/Protease/Amylase 12/38/60 DR Capsule PO SCH ×3 (08:13→17:04)
[2018-04-14] MEDS: Insulin NovoLOG Aspart Correctional Sugar Inj SQ SCH ×4 (08:13→20:59)
[2018-04-14] MEDS: Insulin Detemir Inj 1,000 UNIT/10 ML Vial SQ SCH (08:14)
[2018-04-14] MEDS: Tiotropium Bromide 18 MCG/ACT Inhaler INH SCH (10:30)
--- NOTE | 2018-04-14 14:35 | P.PN ---
Subjective Interval history: Follow-up right lower extremity pain April 14, 2018-patient seen and examined, complaining of right lower extremity pain from the hip down to above the knee without any weakness or paresthesia Physical Exam Vital signs: Vital Signs 04/13/18 16:00 04/13/18 20:00 04/14/18 00:00 Temperature 98.7 F 101.0 F H 102.4 F H Pulse Rate 102 H 102 H 109 H Respiratory Rate 16 17 17 Blood Pressure 119/59 L 122/60 128/65 Pulse Oximetry 95 94 L 95 04/14/18 00:30 04/14/18 08:00 04/14/18 12:00 Temperature 98.9 F 98.4 F Pulse Rate 103 H 91 H Respiratory Rate 17 17 18 Blood Pressure 151/80 H 99/50 L Pulse Oximetry 96 97 Intake & Output 04/13/18 04/14/18 04/14/18 18:59 06:59 18:59 Intake Total 240 / 240 Balance 240 / 240 Intake: Oral 240 / 240 Other: # Voids 1 5 Date of Last Bowel Movement 04/11/18 04/11/18 04/13/18 Narrative: GENERAL: NAD SKIN: Warm and dry. HEAD: Atraumatic. Normocephalic. EYES: Pupils equal and round. No scleral icterus. No injection or drainage. ENT: No nasal bleeding or discharge. Mucous membranes pink and moist. NECK: Trachea midline. No JVD. CARDIOVASCULAR: Regular rate and rhythm. RESPIRATORY: No accessory muscle use. Clear to auscultation. Breath sounds equal bilaterally. GASTROINTESTINAL: Abdomen soft, non-tender, nondistended. Hepatic and splenic margins not palpable. MUSCULOSKELETAL: Extremities without clubbing, cyanosis, or edema. No obvious deformities. NEUROLOGICAL: Awake and alert. No obvious cranial nerve deficits. Motor grossly within normal limits. Four out of 5 muscle strength in the right leg. Normal speech. PSYCHIATRIC: Appropriate mood and affect; insight and judgment normal. Results - Labs CBC & Chem 7: 04/13/18 06:52 04/13/18 06:52 Laboratory Results - last 24 hr 04/13/18 04/13/18 04/13/18 06:52 17:36 18:07 POC Glucose 52 L 41 L* Hemoglobin A1c 8.9 H 04/13/18 04/13/18 04/13/18 18:29 18:56 20:49 POC Glucose 53 L 144 H 210 H Hemoglobin A1c 04/14/18 04/14/18 07:57 11:50 POC Glucose 209 H 104 Hemoglobin A1c Microbiology 04/11/18 01:25 Blood - Peripheral Aerobic Blood Culture - Preliminary No growth in 3 days 04/11/18 01:25 Blood - Peripheral Anaerobic Blood Culture - Preliminary No growth in 3 days 04/11/18 01:34 Blood - Peripheral Aerobic Blood Culture - Preliminary No growth in 3 days 04/11/18 01:34 Blood - Peripheral Anaerobic Blood Culture - Preliminary No growth in 3 days - Imaging Impressions Thoracic Spine MRI 04/13/18 00:00 CONCLUSION: 1. Mild desiccation of the T11-T12 disc otherwise negative. I do not see an etiology for the patient's right flank and leg pain. 2. Signal intensity in the cord is normal. Assessment and Plan - Plan 57-year-old female with Back pain MRI from [facility] report states "enhancement of the lumbar roots and suspicion of enhancement of the cauda equina. This may be related to inflammatory neuropathy, arachnoiditis or leptomeningeal carcinomatosis". Thoracic MRI noted and review by me with the finding of Mild desiccation of the T11-T12 disc otherwise negative Appreciate input from Neurosurgery PT to treat and eval Anxiety Oxycodone/Toradol as needed for pain. Dilaudid as needed for breakthrough pain per Continue Klonopin 0.5 mg p.o. twice daily. Continue Neurontin 300 mg p.o. 3 times daily. COPD Ongoing tobacco abuse Chronic cough Hx lung cancer s/p RU lobectomy Tobacco cessation counseling. Essential hypertension Lisinopril 5 mg p.o. daily Chronic pancreatitis Continue Creon tid Constipation Bowel regimen Leukocytosis UTI based on UA at outside hospital. Continue Levaquin [address] abdomen pelvis with nonobstructing renal stones. Diabetes mellitus, poorly controlled Monitor bedside glucose AC at bedtime and administer medium dose insulin sliding scale as indicated. Detemir 10 units subcu daily PROPH: SCDs for DVT prophylaxis.
--- NOTE | 2018-04-14 17:02 | ECHRPT ---
EXAM DATE: 04/13/2018 12:17 PM EDT AGE/SEX: 57 years / Female INDICATIONS: Claudication CLINICAL DATA: This is the patient's initial encounter. Patient reports that signs and symptoms have been present for 2 weeks and indicates a pain score of 5/10. MEDICAL/SURGICAL HISTORY: . anxiety, chronic pancreatitis, copd, DM, hepatitis C, history of stephania ng cancer, seizure disorder, tobacco abuse, hypertension, back pain, neuropathy . exploratory laparo vaughn, res section small bowel, partial pancreatectomy, splenectomy, lobectomy lung COMPARISON: No prior exams available for comparison. TECHNIQUE: Four-cuff ankle and brachial pressures were obtained. Pulse cuff waveform tracings of the ankles were recorded, and ankle-brachial indices were calculated. PRESSURES (mmHg): Brachial (arm) : RIGHT: iv site, LEFT: 103 Ankle : RIGHT: 124, LEFT: 115 RACHELLE : RIGHT: 1.20, LEFT: 1.12 TBI : RIGHT: 0, LEFT: 0.52 FINDINGS: Pulsed-Cuff Waveform: Biphasic waveforms at the ankles bilaterally. Unable to obtain adequate wavefo rm involving the right toe.. Other: None. CONCLUSION: 1. ABIs within the normal range with reduction of the left TBI. Unable to calculate right TBI. This raises concern for microangiopathic disease. Electronically signed by: Abdon Magdaleno MD 04/14/2018 5:00 PM EDT
[2018-04-14] MEDS: Phenytoin Sodium 100 MG Capsule PO SCH (20:23)
[2018-04-15] MEDS: Acetaminophen 325 MG Tablet PO PRN (00:34)
[2018-04-15] MEDS: HYDROmorphone PF Inj 2 MG/ML Vial IV.PUSH PRN ×5 (01:18→20:21)
[2018-04-15] MEDS: Chlorhexidine Gluconate 2% 1 Pack (2 Cloths) TOPICAL SCH (03:29)
[2018-04-15] MEDS: Insulin NovoLOG Aspart Correctional Sugar Inj SQ SCH ×4 (08:36→20:22)
[2018-04-15] MEDS: Lisinopril 5 MG Tablet PO SCH (09:44)
[2018-04-15] MEDS: Gabapentin 300 MG Capsule PO SCH ×3 (09:45→18:49)
[2018-04-15] MEDS: levoFLOXacin 500 MG Tablet PO SCH (09:45)
[2018-04-15] MEDS: clonazePAM 0.5 MG Tablet PO SCH ×2 (10:06→20:22)
[2018-04-15] MEDS: Senna/Docusate Sodium 8.6/50 MG Tablet PO SCH ×2 (10:07→20:22)
[2018-04-15] MEDS: Insulin Detemir Inj 1,000 UNIT/10 ML Vial SQ SCH (10:07)
--- NOTE | 2018-04-15 11:20 | P.PNNS ---
Subjective Interval history: complains of pain located in the right lower flank, right hip and radiates down the right anterior thigh to the knee. denies numbness, tingling. Physical Exam Vital signs: Vital Signs 04/14/18 12:00 04/14/18 16:00 04/14/18 20:00 Temperature 98.4 F 99.0 F Pulse Rate 91 H 97 H 96 H Respiratory Rate 18 17 17 Blood Pressure 99/50 L 100/48 L 130/60 Pulse Oximetry 97 97 96 04/15/18 00:00 04/15/18 03:47 04/15/18 04:00 Temperature 101.3 F H 98.7 F Pulse Rate 122 H 114 H Respiratory Rate 18 16 18 Blood Pressure 107/63 108/57 L Pulse Oximetry 95 95 04/15/18 08:00 Temperature 97.7 F Pulse Rate 113 H Respiratory Rate 17 Blood Pressure 110/56 L Pulse Oximetry 98 Intake & Output 04/14/18 04/15/18 04/15/18 18:59 06:59 18:59 Intake Total 1140 / 1140 Balance 1140 / 1140 Weight 35.3 kg Intake: Oral 1140 / 1140 Other: # Voids 3 5 Date of Last Bowel Movement 04/14/18 04/14/18 # Bowel Movements 1 2 # Emeses 1 Narrative: Opens eyes spontaneously Bright and awake Alert and oriented x3 right iliopsoas and quads 4+ to 5- with pain, 5/5 right hamstring, ta, EHL. 5/5 LLE Plantars flexors bilaterally 2+ knees, 1+ ankles b/l Assessment and Plan - Plan 57 year old female with complaint of right lower flank pain radiating to right hip, anterior thigh, knee. ? L3/L4 distribution. noted had prior MRI L spine but not available currently. Gurinder 04/12/18 57 y/o female with acute onset low back pain radiating into the right lower extremity without a precipitating event ("I woke up like this.") MRI of the lumbar spine without evidence of mass lesion, but radiologist reports concern for enhancement of the lumbar nerve roots and cauda equina. On personal review , I find this difficult to perceive, but the imaging study is not high quality. She has asymmetry in her distal extremity pulses (left palpable, right not palpable). It is conceivable that her pain may be of vascular etiology. I spoke with the quality system manager, Dr. Mccarthy on 04/11, and suggested an imaging study to assess blood flow in her lower extremities. If this is negative, then I would proceed with a thoracic MRI to evaluate for a more rostral lesion that may account for her symptoms, although given the lack of thoracic sensory levels and myelopathy on exam, I find it unlikely to yield much information. She reports pain is improved today (04/12), but still present. MRI T spine report 1. Mild desiccation of the T11-T12 disc otherwise negative. I do not see an etiology for the patient's right flank and leg pain. 2. Signal intensity in the cord is normal. Plan: MRI T spine reviewed, redo MRI L spine to assess neural impingement Dr. William reviewed MRI L spine, no evidence of neural impingement of canal stenosis to cause her pain
--- NOTE | 2018-04-15 11:22 | P.PNIM ---
Subjective Interval history: 04/10: 57-year-old female with past medical history of COPD, diabetes , seizure disorder, hepatitis C, lung cancer status post right upper lobectomy and chemotherapy completed in 2011, ongoing tobacco abuse, chronic pancreatitis , history of alcohol dependence now in remission since 1995. She was transferred to [facility] from [facility] due to the concern for cauda equina. She was admitted at [facility] on 04/09 after presenting with 2-day history of right-sided back pain radiating down her right leg. She states that she woke up with the pain. Denies trauma. Says she has been able to ambulate on it even while at [facility] but when she is trying to lifted up her leg to get into bed she uses her arms to assist with lifting. She denies urinary retention or incontinence, fecal incontinence, saddle paresthesias. She denies history of similar pain. Denies headache. Had temp 101 upon admission to [facility]. She has been on Levaquin for UTI. 04/11: Mildly elevated white blood cell count, sed rate 100. Remains afebrile. MRI does not obviously implicate a source for right leg discomfort. Right leg remains warm. We will obtain arterial Dopplers of the lower extremities to look specifically for inflow reduction at the iliofemoral level. For purposes of completeness, should the arterial studies does not indicate any cause, we will obtain thoracic MRI as suggested by the neuro surgery service. Patient otherwise remained stable. 04-12 TRANSFERRED TO OUR SERVICE TODAY [facility] RN AND PT AND CM STILL NEEDS ARTERIAL DOPPLERS OF THE LOWER EXTREMITIES -NOT DONE YET MAY NEED THORACIC MRI IF INCONCLUSIVE PT AND OT LESS PAIN CURRENTLY 10-1 MRI ORDERED AND RACHELLE ORDERED Follow-up right lower extremity pain April 14, 2018-patient seen and examined, complaining of right lower extremity pain from the hip down to above the knee without any weakness or paresthesia 10-3 CONSULT VASCULAR AND AWAIT NS INPUT [facility] RN AND PT AND CM Physical Exam Vital signs: Vital Signs 04/14/18 12:00 04/14/18 16:00 04/14/18 20:00 Temperature 98.4 F 99.0 F Pulse Rate 91 H 97 H 96 H Respiratory Rate 18 17 17 Blood Pressure 99/50 L 100/48 L 130/60 Pulse Oximetry 97 97 96 04/15/18 00:00 04/15/18 03:47 04/15/18 04:00 Temperature 101.3 F H 98.7 F Pulse Rate 122 H 114 H Respiratory Rate 18 16 18 Blood Pressure 107/63 108/57 L Pulse Oximetry 95 95 04/15/18 08:00 Temperature 97.7 F Pulse Rate 113 H Respiratory Rate 17 Blood Pressure 110/56 L Pulse Oximetry 98 Intake & Output 04/14/18 04/15/18 04/15/18 18:59 06:59 18:59 Intake Total 1140 / 1140 Balance 1140 / 1140 Weight 35.3 kg Intake: Oral 1140 / 1140 Other: # Voids 3 5 Date of Last Bowel Movement 04/14/18 04/14/18 # Bowel Movements 1 2 # Emeses 1 Narrative: GENERAL: NAD SKIN: Warm and dry. HEAD: Atraumatic. Normocephalic. EYES: Pupils equal and round. No scleral icterus. No injection or drainage. ENT: No nasal bleeding or discharge. Mucous membranes pink and moist. NECK: Trachea midline. No JVD. CARDIOVASCULAR: Regular rate and rhythm. RESPIRATORY: No accessory muscle use. Clear to auscultation. Breath sounds equal bilaterally. GASTROINTESTINAL: Abdomen soft, non-tender, nondistended. Hepatic and splenic margins not palpable. MUSCULOSKELETAL: Extremities without clubbing, cyanosis, or edema. No obvious deformities. NEUROLOGICAL: Awake and alert. No obvious cranial nerve deficits. Motor grossly within normal limits. Four out of 5 muscle strength in the right leg. Normal speech. PSYCHIATRIC: Appropriate mood and affect; insight and judgment normal. Results - Labs CBC & Chem 7: 04/13/18 06:52 04/13/18 06:52 Laboratory Results - last 24 hr 04/14/18 04/14/18 04/14/18 11:50 17:02 20:28 POC Glucose 104 240 H 91 04/15/18 08:00 POC Glucose 287 H Microbiology 04/14/18 01:15 Blood - Peripheral Aerobic Blood Culture - Preliminary No growth in 1 day 04/14/18 01:15 Blood - Peripheral Anaerobic Blood Culture - Preliminary No growth in 1 day 04/14/18 01:20 Blood - Peripheral Aerobic Blood Culture - Preliminary No growth in 1 day 04/14/18 01:20 Blood - Peripheral Anaerobic Blood Culture - Final QNS - See aerobic report. 04/11/18 01:25 Blood - Peripheral Aerobic Blood Culture - Preliminary No growth in 4 days 04/11/18 01:25 Blood - Peripheral Anaerobic Blood Culture - Preliminary No growth in 4 days 04/11/18 01:34 Blood - Peripheral Aerobic Blood Culture - Preliminary No growth in 4 days 04/11/18 01:34 Blood - Peripheral Anaerobic Blood Culture - Preliminary No growth in 4 days - Imaging Impressions Extremity Arterial Study 04/13/18 12:17 CONCLUSION: 1. ABIs within the normal range with reduction of the left TBI. Unable to calculate right TBI. This raises concern for microangiopathic disease. Assessment and Plan - Plan 57-year-old female with Back pain MRI from [facility] report states "enhancement of the lumbar roots and suspicion of enhancement of the cauda equina. This may be related to inflammatory neuropathy, arachnoiditis or leptomeningeal carcinomatosis". Thoracic MRI noted and review by me with the finding of Mild desiccation of the T11-T12 disc otherwise negative Appreciate input from Neurosurgery PT to treat and eval ABNORMAL RACHELLE- CONSULT VASCULAR Anxiety Oxycodone/Toradol as needed for pain. Dilaudid as needed for breakthrough pain per Continue Klonopin 0.5 mg p.o. twice daily. Continue Neurontin 300 mg p.o. 3 times daily. COPD Ongoing tobacco abuse Chronic cough Hx lung cancer s/p RU lobectomy Tobacco cessation counseling. Essential hypertension Lisinopril 5 mg p.o. daily Chronic pancreatitis Continue Creon tid Constipation Bowel regimen Leukocytosis UTI based on UA at outside hospital. Continue Levaquin [address] abdomen pelvis with nonobstructing renal stones. Diabetes mellitus, poorly controlled Monitor bedside glucose AC at bedtime and administer medium dose insulin sliding scale as indicated. Detemir 10 units subcu daily PROPH: SCDs for DVT prophylaxis. Code Status: FULL CODE Discussed Condition With: RN AND PT AND CM Discharge Planning: PENDING SURGERY CLEARANCE
[2018-04-15] MEDS: Lipase/Protease/Amylase 12/38/60 DR Capsule PO SCH ×3 (12:28→18:49)
[2018-04-15] MEDS: Tiotropium Bromide 18 MCG/ACT Inhaler INH SCH (12:35)
--- NOTE | 2018-04-15 13:32 | MR ---
EXAM DATE: 04/15/2018 11:53 AM EDT AGE/SEX: 57 years / Female INDICATIONS: Radiculopathy. CLINICAL DATA: This is the patient's initial encounter. Patient reports that signs and symptoms have been present for 1 day and indicates a pain score of 5/10. MEDICAL/SURGICAL HISTORY: Hepatitis C. Carcinoma, lung. Diabetes mellitus type II. Splenectom y. Lobectomy. Colon resection. COMPARISON: No prior exams available for comparison. TECHNIQUE: Multiplanar, multisequence MRI of the lumbar spine was performed without contrast. Patie nt was scanned in a sitting position; neutral, flexion, and extension scans were performed in the sa gittal plane. FINDINGS: Vertebra: Homogeneous signal. Normal alignment. Conus: Normal level and configuration. T12-L1: The thecal sac has a normal diameter. No evidence of disc bulge or protrusion. The neural foramina are patent bilaterally. L1-L2: The thecal sac has a normal diameter. No evidence of disc bulge or protrusion. The neural foramina are patent bilaterally. L2-L3: The thecal sac has a normal diameter. No evidence of disc bulge or protrusion. The neural foramina are patent bilaterally. L3-L4: The thecal sac has a normal diameter. No evidence of disc bulge or protrusion. The neural foramina are patent bilaterally. L4-L5: The thecal sac has a normal diameter. No evidence of disc bulge or protrusion. The neural foramina are patent bilaterally. L5-S1: The thecal sac has a normal diameter. No evidence of disc bulge or protrusion. The neural foramina are patent bilaterally. CONCLUSION: 1. Negative MRI of the lumbar spine. 2. I do not see an etiology of patient's radicular symptoms. Electronically signed by: Toby Perry MD 04/15/2018 1:30 PM EDT
[2018-04-15] MEDS: Dextrose 50% in Water 50 ML Vial IV.PUSH PRN (18:36)
[2018-04-15] MEDS: Phenytoin Sodium 100 MG Capsule PO SCH (20:22)
[2018-04-16] MEDS: HYDROmorphone PF Inj 2 MG/ML Vial IV.PUSH PRN ×4 (00:19→15:20)
--- NOTE | 2018-04-16 01:00 | CT ---
EXAM DATE: 04/15/2018 11:37 PM EDT AGE/SEX: 57 years / Female INDICATIONS: Peripheral vascular disease of both legs. Right leg pain. CLINICAL DATA: This is the patient's initial encounter. Patient reports that signs and symptoms have been present for 1 day and indicates a pain score of 6/10. MEDICAL/SURGICAL HISTORY: Diabetes. Hepatitis C. Carcinoma, lung. . Lobectomy. Small bowel resec tion. Partial pancreatectomy RADIATION DOSE: 29.77 CTDI (mGy) COMPARISON: No prior exams available for comparison. TECHNIQUE: Volumetric scanning was performed using a multi-row detector CT scanner during bolus infu jacquelyn of 90 ml Omnipaque 350 (iohexol) nonionic water-soluble contrast as a single exam dose. The d angela was post processed with a variety of visualization algorithms including full volume maximum inten sity projection, multi-planar sliding thin slab reformation, curved planar reformation, and surface r endering techniques. Using automated exposure control and adjustment of the mA and/or kV according t o patient size, radiation dose was kept as low as reasonably achievable to obtain optimal diagnostic quality images. DICOM format image data is available electronically for review and comparison. FINDINGS: Angiographic Findings: Abdominal Aorta: Moderate atherosclerotic calcifications of the distal abdominal aorta with mild rubina nosis at the bifurcation. Renal Arteries: Single patent renal arteries. Mesenteric Arteries: Celiac, SMA, and CONOR are patent. Right side: Inflow: Diffuse calcified common iliac artery calcified plaque without significant flow-limiting sten osis. Iliac arteries are otherwise patent. The common femoral artery is patent. Outflow: The profunda is patent. The SFA is patent. The popliteal artery is patent. Runoff: Three vessel runoff. Left side: Inflow: Diffuse calcified common iliac artery calcified plaque with mild to moderate focal stenosis i n the distal common iliac artery. Iliac arteries are otherwise patent. The common femoral artery is patent. Outflow: The profunda is patent. The SFA is patent. The popliteal artery is patent. Runoff: Three vessel runoff. General Findings: LOWER LUNGS: Mild to moderate centrilobular emphysema. LIVER: Liver demonstrates diffusely decreased density with moderate extra and intrahepatic ductal di latation. Gallbladder is surgically absent. SPLEEN: Spleen is not demonstrated and may be surgically absent. PANCREAS: Small calcifications near the pancreatic head region. Patient is status post partial pancr eatectomy. KIDNEYS: Cortical scarring noted in the right posterior mid kidney. Kidneys otherwise demonstrate sy mmetrical enhancement without hydronephrosis or radiopaque renal calculi. ADRENAL GLANDS: Unremarkable. BOWEL/MESENTERY: Stomach is moderately distended. There is very trace ascites in the deep pelvis. Mo derate stool throughout the colon without dilated small bowel loops. Patient is status post partial s mall bowel resection. No free air or pneumatosis. ABDOMINAL WALL: Diastasis recti RETROPERITONEUM: No evidence of adenopathy in the retrocrural, para-aortic, or deep pelvic regions. BLADDER: Contours are smooth. REPRODUCTIVE: No definitive abnormal mass or calcification. INGUINAL: The inguinal region is unremarkable without evidence of adenopathy. BONY STRUCTURES: Degenerative spondylosis of the lower lumbar spine. CONCLUSION: 1. Moderate aortic plaque with mild distal aortic stenosis at the bifurcation. 2. Diffuse calcified common iliac artery plaques bilaterally with focal mild to moderate stenosis in the distal left common iliac artery. 3. No outflow stenosis. 4. Three-vessel runoff bilaterally. 5. Multiple ancillary findings, as above. Electronically signed by: Barrie Fisher MD 04/16/2018 12:59 AM EDT
[2018-04-16 07:57] LABS: Hematocrit 27.6 % (35.0-46.0); Mean Corpuscular HGB Conc 32.5 % (32.0-36.0); Mean Corpuscular Hemoglobin 32.2 pg (27.0-34.0); Mean Corpuscular Volume 98.9 fL (80.0-100.0); Mean Platelet Volume 7.9 fL (7.0-11.0); Platelet Count 685 th/mm3 (150-450); Red Blood Count 2.79 mil/mm3 (4.00-5.30); Red Cell Distribution Width 13.7 % (11.6-17.2); White Blood Count 14.5 th/mm3 (4.0-11.0)
[2018-04-16 08:13] LABS: Alanine Aminotransferase 15 U/L (10-53); Anion Gap 9 meq/L (5-15); Aspartate Aminotransferase 23 U/L (15-37); Calcium 8.7 mg/dL (8.5-10.1); Carbon Dioxide 25.1 meq/L (21.0-32.0); Chloride 100 meq/L (98-107); Glomerular Filtration Rate 40 mL/min (>89); Glucose,Random 184 mg/dL (74-106); Magnesium 1.6 mg/dL (1.5-2.5); Potassium 4.2 meq/L (3.5-5.1); Sodium 134 meq/L (136-145)
[2018-04-16 08:20] LABS: Alkaline Phosphatase 123 U/L (45-117); Blood Urea Nitrogen 21 mg/dL (7-18); Total Protein 6.7 g/dL (6.4-8.2)
[2018-04-16] MEDS: clonazePAM 0.5 MG Tablet PO SCH ×2 (08:42→20:05)
[2018-04-16] MEDS: Senna/Docusate Sodium 8.6/50 MG Tablet PO SCH ×2 (08:42→20:05)
[2018-04-16] MEDS: Lisinopril 5 MG Tablet PO SCH (08:42)
[2018-04-16] MEDS: levoFLOXacin 500 MG Tablet PO SCH (08:42)
[2018-04-16] MEDS: Tiotropium Bromide 18 MCG/ACT Inhaler INH SCH (08:43)
[2018-04-16] MEDS: Gabapentin 300 MG Capsule PO SCH ×3 (08:43→18:18)
[2018-04-16] MEDS: Lipase/Protease/Amylase 12/38/60 DR Capsule PO SCH ×3 (08:43→18:19)
--- NOTE | 2018-04-16 08:51 | P.PN ---
Subjective Interval history: Follow-up visit for back and right leg pain. Patient seen and examined resting in bed appears to be comfortable and in no acute distress. Continues to report back pain as well as right leg pain. Patient is unable to give a description of pain but states it begins in her right side lower back and travels down the right sided groin area. She has been able to ambulate without any difficulties per patient or nurse. She denies any chills, nausea, vomiting, diarrhea, cough , shortness of breath or chest pain. Moving her bowels and denies any dysuria. Physical Exam Vital signs: Vital Signs 04/15/18 12:00 04/15/18 16:00 04/15/18 20:00 Temperature 99.1 F 98.5 F 98.1 F Pulse Rate 109 H 90 91 H Respiratory Rate 18 17 17 Blood Pressure 103/51 L 102/54 L 111/58 L Pulse Oximetry 96 97 97 04/16/18 00:00 04/16/18 04:00 Temperature 100.4 F H 99.8 F H Pulse Rate 96 H 100 H Respiratory Rate 17 16 Blood Pressure 121/58 L 126/58 L Pulse Oximetry 97 97 Intake & Output 04/15/18 04/16/18 04/16/18 18:59 06:59 18:59 Intake Total 750 / 750 350 / 350 Output Total 2 / 2 Balance 750 / 750 348 / 348 Weight 35.3 kg Intake: Oral 750 / 750 350 / 350 Output: Urine 2 / 2 Other: # Voids 3 3 Date of Last Bowel Movement 04/15/18 04/15/18 # Bowel Movements 1 Narrative: GENERAL: Thin female resting in bed in no acute distress. SKIN: Warm and dry. HEAD: Atraumatic. Normocephalic. EYES: Pupils equal and round. No scleral icterus. No injection or drainage. ENT: No nasal bleeding or discharge. Mucous membranes pink and moist. NECK: Trachea midline. CARDIOVASCULAR: Regular rate and rhythm. RESPIRATORY: Clear to auscultation. Breath sounds equal bilaterally. GASTROINTESTINAL: Abdomen soft, non-tender, nondistended. + Bowel sounds. MUSCULOSKELETAL: Extremities without clubbing, cyanosis, or edema. No obvious deformities. Right hip mobility limited secondary to pain. Right-sided lumbar tenderness, right groin tenderness. NEUROLOGICAL: Awake and alert. No obvious cranial nerve deficits. Motor grossly within normal limits. 4/5 muscle strength in the right leg. Normal speech. PSYCHIATRIC: Appropriate mood and affect; insight and judgment normal. Results - Labs CBC & Chem 7: 04/16/18 06:58 04/16/18 06:58 Laboratory Results - last 24 hr 04/15/18 04/15/18 04/15/18 12:27 17:43 17:47 WBC RBC Hgb Hct MCV MCH MCHC RDW Plt Count MPV Prelim Diff (Auto) Differential Comment Sodium Potassium Chloride Carbon Dioxide Anion Gap BUN Creatinine Estimated GFR POC Glucose 213 H 35 L* 34 L* Random Glucose Calcium Phosphorus Magnesium Total Bilirubin AST ALT Alkaline Phosphatase Total Protein Albumin 04/15/18 04/15/18 04/15/18 18:03 18:19 19:01 WBC RBC Hgb Hct MCV MCH MCHC RDW Plt Count MPV Prelim Diff (Auto) Differential Comment Sodium Potassium Chloride Carbon Dioxide Anion Gap BUN Creatinine Estimated GFR POC Glucose 49 L* 41 L* 292 H Random Glucose Calcium Phosphorus Magnesium Total Bilirubin AST ALT Alkaline Phosphatase Total Protein Albumin 04/15/18 04/16/18 04/16/18 20:17 03:19 06:58 WBC 14.5 H RBC 2.79 L Hgb 9.0 L Hct 27.6 L MCV 98.9 MCH 32.2 MCHC 32.5 RDW 13.7 Plt Count 685 H MPV 7.9 Prelim Diff (Auto) Manual diff required Differential Comment . Sodium Potassium Chloride Carbon Dioxide Anion Gap BUN Creatinine Estimated GFR POC Glucose 359 H 124 H Random Glucose Calcium Phosphorus Magnesium Total Bilirubin AST ALT Alkaline Phosphatase Total Protein Albumin 04/16/18 04/16/18 06:58 08:37 WBC RBC Hgb Hct MCV MCH MCHC RDW Plt Count MPV Prelim Diff (Auto) Differential Comment Sodium 134 L Potassium 4.2 Chloride 100 Carbon Dioxide 25.1 Anion Gap 9 BUN 21 H Creatinine 1.36 H Estimated GFR 40 L POC Glucose 248 H Random Glucose 184 H Calcium 8.7 Phosphorus 2.0 L Magnesium 1.6 Total Bilirubin 0.2 AST 23 ALT 15 Alkaline Phosphatase 123 H Total Protein 6.7 Albumin 2.0 L Microbiology 04/16/18 04:40 Nasal Wash Influenza Types A,B Antigen - Final Negative for FLU A and B antigen Infection due to influenza A or B cannot be ruled out since the antigen present in the sample may be below the detection limit of the test. 04/14/18 01:15 Blood - Peripheral Aerobic Blood Culture - Preliminary No growth in 1 day 04/14/18 01:15 Blood - Peripheral Anaerobic Blood Culture - Preliminary No growth in 1 day 04/14/18 01:20 Blood - Peripheral Aerobic Blood Culture - Preliminary No growth in 1 day 04/14/18 01:20 Blood - Peripheral Anaerobic Blood Culture - Final QNS - See aerobic report. 04/11/18 01:25 Blood - Peripheral Aerobic Blood Culture - Preliminary No growth in 4 days 04/11/18 01:25 Blood - Peripheral Anaerobic Blood Culture - Preliminary No growth in 4 days 04/11/18 01:34 Blood - Peripheral Aerobic Blood Culture - Preliminary No growth in 4 days 04/11/18 01:34 Blood - Peripheral Anaerobic Blood Culture - Preliminary No growth in 4 days - Imaging Impressions Lumbar Spine MRI 04/15/18 00:00 CONCLUSION: 1. Negative MRI of the lumbar spine. 2. I do not see an etiology of patient's radicular symptoms. Aorta w/Runoff CTA 04/15/18 16:15 CONCLUSION: 1. Moderate aortic plaque with mild distal aortic stenosis at the bifurcation. 2. Diffuse calcified common iliac artery plaques bilaterally with focal mild to moderate stenosis in the distal left common iliac artery. 3. No outflow stenosis. 4. Three-vessel runoff bilaterally. 5. Multiple ancillary findings, as above. Assessment and Plan - Plan 57-year-old female with past medical history significant for COPD, diabetes mellitus, seizure disorder, hepatitis C, lung cancer status post right upper lobectomy and chemotherapy completed in 2011 with ongoing tobacco abuse and chronic pancreatitis who presented appears hospital due to back and right lower extremity pain. Back pain/ right LE and groin pain -MRI from [facility] report states "enhancement of the lumbar roots and suspicion of enhancement of the cauda equina. This may be related to inflammatory neuropathy, arachnoiditis or leptomeningeal carcinomatosis". -Chest CT demonstrating moderate COPD changes, 2 nodules in the right upper. One measuring 3mm and the other 6mm. Recommend follow-up CT scan in 6 months. -Thoracic MRI completed 04/13 showing mild dissection of the T11-T12 disc otherwise negative. No clear etiology seen for patient's right flank and leg pain. -Lumbar MRI completed on 04/15 was negative -ABIs completed: ABIs within the normal range with reduction of the left TBI. Unable to calculate right TBI. This raises concern for microangiopathic disease. -CTA with runoff: Moderate aortic plaque with mild distal aortic stenosis at bifurcation, diffuse calcified common iliac artery plaques bilaterally with focal mild to moderate stenosis in the distal left common iliac artery. No noted color flow stenosis. -Carotid Doppler ultrasound negative -Patient is being seen and evaluated by neurosurgery with no found evidence to explain patient's pain. -Vascular surgery also saw and evaluated patient with no hemodynamically significant findings and workup, and off. - PT to treat and eval -Pain control with IV Dilaudid and p.o. oxycodone -Neurosurgery to reevaluate her tomorrow. Anxiety Oxycodone/Toradol as needed for pain. Dilaudid as needed for breakthrough pain per Continue Klonopin 0.5 mg p.o. twice daily. Continue Neurontin 300 mg p.o. 3 times daily. COPD Ongoing tobacco abuse Chronic cough Hx lung cancer s/p RU lobectomy Tobacco cessation counseling. Essential hypertension Lisinopril 5 mg p.o. daily Chronic pancreatitis Continue Creon tid Constipation Bowel regimen Leukocytosis - Low grade temp overnight, CBC with slight increase to 14.5. -UTI based on UA at outside hospital. On Levaquin 500 mg p.o. daily here since 04/11. Recheck UA negative. DC Levaquin -CT abdomen pelvis with nonobstructing renal stones. - Continue to monitor for fevers and CBC, if ongoing consider chest x-ray for possible source of infection. Diabetes mellitus, poorly controlled - Continue ADA diet, Accu-checks with ISS -Hypoglycemic episode last night with BS down to 34. Decrease Levemir to 5 units. hypoglycemic protocol. Detemir 10 units subcu daily PROPH: SCDs for DVT prophylaxis. Discussed Condition With: Patient and RN.
[2018-04-16 09:06] LABS: Lymphocytes 9 % (9-44); Monocytes 10 % (0-8); Platelet Morphology Normal (Normal)
--- NOTE | 2018-04-16 10:21 | US ---
EXAM DATE: 04/16/2018 12:00 AM EDT AGE/SEX: 57 years / Female INDICATIONS: Carotid Bruit. CLINICAL DATA: This is the patient's initial encounter. Patient reports that signs and symptoms have been present for 1 day and indicates a pain score of 0/10. MEDICAL/SURGICAL HISTORY: Chronic obstructive pulmonary disease. Diabetes. Hepatitis C. Anxi ety. Chronic pancreatitis. Hx of lung cancer. Seizure disorder. Tobacco use. Splenectomy. Lobectomy . Exploratory laparotomy. Small bowel resection. Partial pancreatectomy. COMPARISON: No prior exams available for comparison. VELOCITY PARAMETERS: ICA/CCA Ratio: Right 1.3 , Left 1.1 ICA: Right 132 cm/sec, Left 130 cm/sec CCA: Right 100 cm/sec, Left 113 cm/sec ECA: Right 152 cm/sec, Left 106 cm/sec Vertebral: Right 90 cm/sec antegrade, Left 88 cm/sec antegrade FINDINGS: Right Carotid: Mild arteriosclerotic plaque is visualized.The waveforms are within normal limits. Left Carotid: Mild arteriosclerotic plaque is visualized. The waveforms are within normal limits. Other: None. CONCLUSION: 1. Right Internal Carotid Artery: No hemodynamically significant stenosis. 2. Left Internal Carotid Artery: No hemodynamically significant stenosis. Electronically signed by: Zhang Canas MD 04/16/2018 10:20 AM EDT
[2018-04-16] MEDS ORDERED: Insulin Detemir Inj 1,000 UNIT/10 ML Vial SQ SCH (10:43)
--- NOTE | 2018-04-16 11:11 | MB ---
cc: Sobeida Urban MD DATE: 04/15/2018 CONSULTING PHYSICIAN: Sobeida Urban MD, Vascular Surgery REASON FOR CONSULTATION: This pain in the right leg, possible vascular disease. HISTORY OF PRESENT ILLNESS: This is a 57-year-old female who presents to the hospital with a 4-day history of pain, sudden onset of pain in her right leg and back. The patient was worked up extensively with an ultrasound, as she has not been found to have any neurologic abnormalities that would account for the same. MRI of thoracic and lumbar spine is essentially normal and consistent with her age. Question arises about any vascular implications. PAST MEDICAL HISTORY: Past medical history is complex. The patient has COPD, diabetes mellitus, hepatitis C, history of recent lung cancer, seizure disorder, and tobacco abuse, which continues. PAST SURGICAL HISTORY: Exploratory laparotomy, hysterectomy, small bowel resection, partial pancreatectomy, splenectomy and lobectomy of the lung. SOCIAL HISTORY: The patient smokes about a pack a day, has not ever stopped, and drinks. Has had repeated bouts of pancreatitis and above-noted resection. PHYSICAL EXAMINATION: GENERAL: Reveals a 57-year-old female, appearing much older than her actual age. HEENT: Normocephalic. No trauma to the head. Pupils are equal and reactive. Extraocular muscles intact. NECK: Bilateral carotid pulses and bilateral carotid bruits 3/6 on the right, 2/6 on the left. No packets of lymph nodes noted in the neck. CHEST: Bilateral breath sounds, decreased in both lung dwyer, consistent with advanced COPD. Chest wall musculature loss and pulmonary cachexia is quite evident. The patient has an upper chest muscle wasting, which is rather prominent. HEART: Regular rhythm. ABDOMEN: Patulous, soft, active bowel sounds. No rebound, no guarding, no masses. Scars from multiple previous surgeries evident. EXTREMITIES: The patient has weak palpable femoral pulses, a pretty good Doppler pulse, popliteal, posterior tibial and dorsalis pedis. She has dependent rubor and elevation pallor. NEUROLOGIC: He is intact at this point with pain in the right leg. Deep tendon reflexes are normal. No pathologic reflexes. IMPRESSION AND RECOMMENDATIONS: The patient with a long history of smoking and related changes. Not necessarily history of vasculopathy, but it would fit in the picture. She is abusing tobacco as we speak, and I am sure she has vascular changes, based on her clinical findings. As far as the pain is concerned, acute onset of pain in the right leg is clearly not due to any vascular disease, although she likely has chronic vascular occlusive changes in both legs. This is more of neurologic in nature and I completely agree with the workup. The patient may need to be on some sort of pain regimen. I will do CTA with runoff and will see which way this goes, if there is anything we can fix, but at this point I do not see this pain being vascular in origin. Thank you very much for referral. MD ROXANA Askew/romie , 04:15 PM , 04:25 PM
[2018-04-16] MEDS: Insulin NovoLOG Aspart Correctional Sugar Inj SQ SCH ×4 (11:17→22:01)
--- NOTE | 2018-04-16 14:23 | P.PNVS ---
Subjective Subjective/Hospital Course: 04/16/2018 The patient with a long history of smoking and related changes. Not necessarily history of vasculopathy, but it would fit in the picture. She is abusing tobacco as we speak, and I am sure she has vascular changes, based on her clinical findings. As far as the pain is concerned, acute onset of pain in the right leg is clearly not due to any vascular disease, although she likely has chronic vascular occlusive changes in both legs. This is more of neurologic in nature and I completely agree with the workup. The patient may need to be on some sort of pain regimen. I reviewed the CTA with a runoff in the spine reveals some moderate aortic disease and common iliac disease but no hemodynamically significant stenoses that would correspond to patient's symptoms. Below the level of the inguinal ligaments patient has three-vessel runoff bilateral and scattered atherosclerotic changes but no hemodynamically significant stenoses. Based on the above this patient does not require any vascular intervention at this time Carotid ultrasound reveals flow in both vessels with some mild degree of stenosis based on flow velocities but nothing hemodynamically significant that would require intervention or further workup We will sign off at this time Thanks J Objective Vital Signs / I&O: Vital Signs 04/15/18 16:00 04/15/18 20:00 04/16/18 00:00 Temperature 98.5 F 98.1 F 100.4 F H Pulse Rate 90 91 H 96 H Respiratory Rate 17 17 17 Blood Pressure 102/54 L 111/58 L 121/58 L Pulse Oximetry 97 97 97 04/16/18 04:00 04/16/18 08:00 04/16/18 12:00 Temperature 99.8 F H 98.1 F 98.4 F Pulse Rate 100 H 101 H 105 H Respiratory Rate 16 16 18 Blood Pressure 126/58 L 114/56 L 102/55 L Pulse Oximetry 97 93 L 96 Intake & Output 04/15/18 04/16/18 04/16/18 18:59 06:59 18:59 Intake Total 750 / 750 350 / 350 Output Total 2 / 2 Balance 750 / 750 348 / 348 Weight 35.3 kg Intake: Oral 750 / 750 350 / 350 Output: Urine 2 / 2 Other: # Voids 3 3 Date of Last Bowel Movement 04/15/18 04/15/18 04/16/18 # Bowel Movements 1 Laboratory Results - last 24 hr 04/15/18 04/15/1804/15/18 17:43 17:47 18:03 WBC RBC Hgb Hct MCV MCH MCHC RDW Plt Count MPV Prelim Diff (Auto) WBC Differential Seg Neuts % (Manual) Band Neuts % (Manual) Lymphocytes % (Manual) Monocytes % (Manual) Abs Neuts (Manual) Differential Comment Platelet Estimate Platelet Morphology Sodium Potassium Chloride Carbon Dioxide Anion Gap BUN Creatinine Estimated GFR POC Glucose 35 L* 34 L* 49 L* Random Glucose Calcium Phosphorus Magnesium Total Bilirubin AST ALT Alkaline Phosphatase Total Protein Albumin 04/15/18 04/15/18 04/15/18 18:19 19:01 20:17 WBC RBC Hgb Hct MCV MCH MCHC RDW Plt Count MPV Prelim Diff (Auto) WBC Differential Seg Neuts % (Manual) Band Neuts % (Manual) Lymphocytes % (Manual) Monocytes % (Manual) Abs Neuts (Manual) Differential Comment Platelet Estimate Platelet Morphology Sodium Potassium Chloride Carbon Dioxide Anion Gap BUN Creatinine Estimated GFR POC Glucose 41 L* 292 H 359 H Random Glucose Calcium Phosphorus Magnesium Total Bilirubin AST ALT Alkaline Phosphatase Total Protein Albumin 04/16/18 04/16/18 04/16/18 03:19 06:58 06:58 WBC 14.5 H RBC 2.79 L Hgb 9.0 L Hct 27.6 L MCV 98.9 MCH 32.2 MCHC 32.5 RDW 13.7 Plt Count 685 H MPV 7.9 Prelim Diff (Auto) Manual diff required WBC Differential Manual diff final Seg Neuts % (Manual) 75 H Band Neuts % (Manual) 6 Lymphocytes % (Manual) 9 Monocytes % (Manual) 10 H Abs Neuts (Manual) 11.7 H Differential Comment . Platelet Estimate High H Platelet Morphology Normal Sodium 134 L Potassium 4.2 Chloride 100 Carbon Dioxide 25.1 Anion Gap 9 BUN 21 H Creatinine 1.36 H Estimated GFR 40 L POC Glucose 124 H Random Glucose 184 H Calcium 8.7 Phosphorus 2.0 L Magnesium 1.6 Total Bilirubin 0.2 AST 23 ALT 15 Alkaline Phosphatase 123 H Total Protein 6.7 Albumin 2.0 L 04/16/18 04/16/18 08:37 12:20 WBC RBC Hgb Hct MCV MCH MCHC RDW Plt Count MPV Prelim Diff (Auto) WBC Differential Seg Neuts % (Manual) Band Neuts % (Manual) Lymphocytes % (Manual) Monocytes % (Manual) Abs Neuts (Manual) Differential Comment Platelet Estimate Platelet Morphology Sodium Potassium Chloride Carbon Dioxide Anion Gap BUN Creatinine Estimated GFR POC Glucose 248 H 292 H Random Glucose Calcium Phosphorus Magnesium Total Bilirubin AST ALT Alkaline Phosphatase Total Protein Albumin Microbiology 04/14/18 01:15 Aerobic Blood Culture - Preliminary Blood - Peripheral No growth in 2 days Anaerobic Blood Culture - Preliminary No growth in 2 days 04/14/18 01:20 Aerobic Blood Culture - Preliminary Blood - Peripheral No growth in 2 days Anaerobic Blood Culture - Final QNS - See aerobic report. 04/11/18 01:25 Aerobic Blood Culture - Final Blood - Peripheral No growth in 5 days Anaerobic Blood Culture - Final No growth in 5 days 04/11/18 01:34 Aerobic Blood Culture - Final Blood - Peripheral No growth in 5 days Anaerobic Blood Culture - Final No growth in 5 days 04/16/18 04:40 Influenza Types A,B Antigen - Final Nasal Wash Negative for FLU A and B antigen Infection due to influenza A or B cannot be ruled out since the antigen present in the sample may be below the detection limit of the test. Impressions Extremity Arterial Study 04/13/18 12:17 CONCLUSION: 1. ABIs within the normal range with reduction of the left TBI. Unable to calculate right TBI. This raises concern for microangiopathic disease. Lumbar Spine MRI 04/15/18 00:00 CONCLUSION: 1. Negative MRI of the lumbar spine. 2. I do not see an etiology of patient's radicular symptoms. Aorta w/Runoff CTA 04/15/18 16:15 CONCLUSION: 1. Moderate aortic plaque with mild distal aortic stenosis at the bifurcation. 2. Diffuse calcified common iliac artery plaques bilaterally with focal mild to moderate stenosis in the distal left common iliac artery. 3. No outflow stenosis. 4. Three-vessel runoff bilaterally. 5. Multiple ancillary findings, as above. Carotid Doppler Study 04/16/18 00:00 CONCLUSION: 1. Right Internal Carotid Artery: No hemodynamically significant stenosis. 2. Left Internal Carotid Artery: No hemodynamically significant stenosis.
[2018-04-16 15:15] LABS: Bilirubin,Urine Negative (Negative); Clarity,Urine Clear (Clear); Color,Urine Yellow (Yellw/Straw); Glucose,Urine (UA) Negative (Negative); Leukocyte Esterase,Urine Negative (Negative); Nitrite,Urine Negative (Negative); Specific Gravity,Urine 1.028 (1.002-1.035); Squamous Epithelial Cell,Urine 1 /hpf (0-5)
[2018-04-16] MEDS: Phenytoin Sodium 100 MG Capsule PO SCH (20:05)
[2018-04-17] MEDS: HYDROmorphone PF Inj 2 MG/ML Vial IV.PUSH PRN ×2 (03:28→07:51)
[2018-04-17] MEDS: clonazePAM 0.5 MG Tablet PO SCH ×2 (08:16→20:17)
[2018-04-17] MEDS: Lipase/Protease/Amylase 12/38/60 DR Capsule PO SCH ×3 (08:16→17:02)
[2018-04-17] MEDS: Lisinopril 5 MG Tablet PO SCH (08:16)
[2018-04-17] MEDS: Gabapentin 300 MG Capsule PO SCH ×3 (08:16→17:02)
[2018-04-17] MEDS: Senna/Docusate Sodium 8.6/50 MG Tablet PO SCH ×2 (08:16→20:19)
[2018-04-17] MEDS: Insulin NovoLOG Aspart Correctional Sugar Inj SQ SCH ×4 (08:17→20:18)
[2018-04-17] MEDS: Tiotropium Bromide 18 MCG/ACT Inhaler INH SCH (08:18)
--- NOTE | 2018-04-17 12:39 | P.PN ---
Subjective Interval history: Follow-up visit for back and right leg pain. Spoke with nurse who reports patient has been getting pain medication frequently for complaints of back pain. She is also been noted to be ambulating without assistive devices. Hypoglycemic episode once again overnight noted patient was asymptomatic. Patient is seen and examined resting in bed and appears to be comfortable and in no acute distress with at bedside. I ask if she normally takes something for pain or sees a pain management doctor and patient denies this. Reports that she recently moved here from [place] in February and has her appointment to establish care with a PCP on 07 May. Continues to complain of back and right sided hip pain although states that this has improved. Denies any numbness or tingling to this leg, denies any urinary or fecal incontinence or saddle anesthesia. Patient has been voiding without any dysuria , denies any nausea, vomiting, diarrhea, cough, shortness of breath or chest pain. Physical Exam Vital signs: Vital Signs 04/16/18 16:00 04/16/18 20:00 04/17/18 00:00 Temperature 98.2 F 97.6 F 97.8 F Pulse Rate 90 78 82 Respiratory Rate 18 18 18 Blood Pressure 111/55 L 113/55 L 107/57 L Pulse Oximetry 96 100 98 04/17/18 08:21 Temperature Pulse Rate Respiratory Rate 18 Blood Pressure Pulse Oximetry Intake & Output 04/16/18 04/17/18 04/17/18 18:59 06:59 18:59 Intake Total 720 / 720 Balance 720 / 720 Intake: Oral 720 / 720 Other: # Voids 4 Date of Last Bowel Movement 04/16/18 04/17/18 04/17/18 # Bowel Movements 1 Narrative: GENERAL: Thin female resting in bed in no acute distress. SKIN: Warm and dry. HEAD: Atraumatic. Normocephalic. EYES: Pupils equal and round. No scleral icterus. No injection or drainage. ENT: No nasal bleeding or discharge. Mucous membranes pink and moist. NECK: Trachea midline. CARDIOVASCULAR: Regular rate and rhythm. RESPIRATORY: Clear to auscultation. Breath sounds equal bilaterally. GASTROINTESTINAL: Abdomen soft, non-tender, nondistended. + Bowel sounds. MUSCULOSKELETAL: Extremities without clubbing, cyanosis, or edema. No obvious deformities. Ambulating without assistive devices. NEUROLOGICAL: Awake and alert. No obvious cranial nerve deficits. Motor grossly within normal limits. 4/5 muscle strength in the right leg. Normal speech. PSYCHIATRIC: Appropriate mood and affect; insight and judgment normal. Results - Labs CBC & Chem 7: 04/16/18 06:58 04/16/18 19:27 Laboratory Results - last 24 hr 04/16/18 04/16/18 04/16/18 13:30 18:09 18:15 POC Glucose 32 L* 40 L* Random Glucose Urine Color Yellow Urine Clarity Clear Urine pH 5.0 Ur Specific [place] 1.028 Urine Protein Negative Urine Glucose (UA) Negative Urine Ketones Negative Urine Occult Blood Negative Urine Nitrate Negative Urine Bilirubin Negative Urine Urobilinogen Less than 2 Ur Leukocyte Esterase Negative Urine WBC 1 Ur Squamous Epith Cells 1 Micro UA Comment Culture not ind Ur Microscopic Review Not Reportable Urine Culture Comments Culture not ind 04/16/18 04/16/18 04/16/18 18:30 18:43 19:03 POC Glucose 45 L* 77 158 H Random Glucose Urine Color Urine Clarity Urine pH Ur Specific [place] Urine Protein Urine Glucose (UA) Urine Ketones Urine Occult Blood Urine Nitrate Urine Bilirubin Urine Urobilinogen Ur Leukocyte Esterase Urine WBC Ur Squamous Epith Cells Micro UA Comment Ur Microscopic Review Urine Culture Comments 04/16/18 04/16/18 04/17/18 19:27 21:51 07:45 POC Glucose 320 H 309 H Random Glucose 145 H Urine Color Urine Clarity Urine pH Ur Specific [place] Urine Protein Urine Glucose (UA) Urine Ketones Urine Occult Blood Urine Nitrate Urine Bilirubin Urine Urobilinogen Ur Leukocyte Esterase Urine WBC Ur Squamous Epith Cells Micro UA Comment Ur Microscopic Review Urine Culture Comments 04/17/18 11:10 POC Glucose 124 H Random Glucose Urine Color Urine Clarity Urine pH Ur Specific [place] Urine Protein Urine Glucose (UA) Urine Ketones Urine Occult Blood Urine Nitrate Urine Bilirubin Urine Urobilinogen Ur Leukocyte Esterase Urine WBC Ur Squamous Epith Cells Micro UA Comment Ur Microscopic Review Urine Culture Comments Microbiology 04/14/18 01:15 Blood - Peripheral Aerobic Blood Culture - Preliminary No growth in 3 days 04/14/18 01:15 Blood - Peripheral Anaerobic Blood Culture - Preliminary No growth in 3 days 04/14/18 01:20 Blood - Peripheral Aerobic Blood Culture - Preliminary No growth in 3 days 04/14/18 01:20 Blood - Peripheral Anaerobic Blood Culture - Final QNS - See aerobic report. 04/11/18 01:25 Blood - Peripheral Aerobic Blood Culture - Final No growth in 5 days 04/11/18 01:25 Blood - Peripheral Anaerobic Blood Culture - Final No growth in 5 days 04/11/18 01:34 Blood - Peripheral Aerobic Blood Culture - Final No growth in 5 days 04/11/18 01:34 Blood - Peripheral Anaerobic Blood Culture - Final No growth in 5 days Assessment and Plan - Plan 57-year-old female with past medical history significant for COPD, diabetes mellitus, seizure disorder, hepatitis C, lung cancer status post right upper lobectomy and chemotherapy completed in 2011 with ongoing tobacco abuse and chronic pancreatitis who presented appears hospital due to back and right lower extremity pain. Back pain/ right LE and groin pain -MRI from [place] report states "enhancement of the lumbar roots and suspicion of enhancement of the cauda equina. This may be related to inflammatory neuropathy, arachnoiditis or leptomeningeal carcinomatosis". -Chest CT demonstrating moderate COPD changes, 2 nodules in the right upper. One measuring 3mm and the other 6mm. Recommend follow-up CT scan in 6 months. -Thoracic MRI completed 04/13 showing mild dissection of the T11-T12 disc otherwise negative. No clear etiology seen for patient's right flank and leg pain. -Lumbar MRI completed on 04/15 was negative -ABIs completed: ABIs within the normal range with reduction of the left TBI. Unable to calculate right TBI. This raises concern for microangiopathic disease. -CTA with runoff: Moderate aortic plaque with mild distal aortic stenosis at bifurcation, diffuse calcified common iliac artery plaques bilaterally with focal mild to moderate stenosis in the distal left common iliac artery. No noted color flow stenosis. -Carotid Doppler ultrasound negative -Patient is being seen and evaluated by neurosurgery with no found evidence to explain patient's pain. -Vascular surgery also saw and evaluated patient with no hemodynamically significant findings and workup, and off. - PT to treat and eval. PT recommends home with PT -Will DC IV Dilaudid and p.o. oxycodone in preparation for DC. -Will need to be cleared by neurosurgery prior to DC. Anxiety Continue Klonopin 0.5 mg p.o. twice daily. Continue Neurontin 300 mg p.o. 3 times daily. COPD Ongoing tobacco abuse Chronic cough Hx lung cancer s/p RU lobectomy Tobacco cessation counseling. Essential hypertension Lisinopril 5 mg p.o. daily Chronic pancreatitis Continue Creon tid Constipation Bowel regimen Leukocytosis - Afebrile, UA negative off of Levaquin -CT abdomen pelvis with nonobstructing renal stones. Diabetes mellitus, poorly controlled - Continue ADA diet, Accu-checks with ISS -Hypoglycemic event overnight, asymptomatic. -Continue Levemir 5 units daily increase insulin sliding scale to low. Maximum coverage with 3 units at bedtime and with dinner. PROPH: SCDs for DVT prophylaxis. Discussed Condition With: Patient, RN, rn hemodialysis charge, and at bedside. Discharge Planning: Pending neurovascular clearance, home with home health PT.
[2018-04-17] MEDS ORDERED: HYDROmorphone PF Inj 2 MG/ML Vial IV.PUSH PRN (12:41)
[2018-04-17] MEDS: Acetaminophen 325 MG Tablet PO PRN (13:33)
--- NOTE | 2018-04-17 14:31 | P.DCO ---
- Diagnosis (1) Back pain Status: Acute (2) Neuropathy Status: Chronic - Physical Therapy Order: Evaluate and treat, Improve ambulation, Strength and gait training - Case Management Consult No - Certification I have seen patient Bren Sow on 04/17/18. My clinical findings support the need for the requested home health care services because: Limited mobility due to disease progression I certify that my clinical findings support that this patient is homebound because: Need for psychosocial assistance
[2018-04-17] MEDS: Phenytoin Sodium 100 MG Capsule PO SCH (20:17)
--- NOTE | 2018-04-18 08:42 | P.PN ---
Subjective Interval history: Follow-up visit for back and right hip pain. Patient seen and examined resting in bed with complaints of right-sided pain. She continues to complain of lower back and hip pain along with right lower quadrant abdominal and inguinal pain today. Patient reports that she has been having regular bowel movements and denies any diarrhea, black or bloody stools, no nausea or vomiting. She denies any dysuria or hematuria. Patient has been ambulating twice a day but continues to complain of pain. She is requesting increase in pain medication. Patient denies any chills, lightheadedness, cough or shortness of breath. Patient had hypoglycemic episode once again yesterday around 5 PM with blood sugar dropping to 58. This morning her blood sugar is 446. Patient is concerned that if she were to be discharged she will be going to another hospital due to her pain. Physical Exam Vital signs: Vital Signs 04/17/18 11:40 04/17/18 14:03 04/17/18 16:00 Temperature 98 F Pulse Rate 82 Respiratory Rate 18 18 18 Blood Pressure 114/57 L Pulse Oximetry 98 04/17/18 17:27 04/17/18 20:00 04/18/18 00:00 Temperature 99.1 F 99.5 F Pulse Rate 88 83 Respiratory Rate 18 16 16 Blood Pressure 103/56 L 125/58 L Pulse Oximetry 96 97 04/18/18 00:05 04/18/18 04:00 Temperature 99.0 F Pulse Rate 104 H Respiratory Rate 18 16 Blood Pressure 123/72 Pulse Oximetry 96 Intake & Output 04/17/18 04/18/18 04/18/18 18:59 06:59 18:59 Intake Total 720 / 720 Balance 720 / 720 Weight 35 kg Intake: Oral 720 / 720 Other: # Voids 4 3 Date of Last Bowel Movement 04/17/18 04/17/18 # Bowel Movements 0 Narrative: GENERAL: Thin female resting in bed in no acute distress. SKIN: Warm and dry. HEAD: Atraumatic. Normocephalic. EYES: Pupils equal and round. No scleral icterus. No injection or drainage. ENT: No nasal bleeding or discharge. Mucous membranes pink and moist. NECK: Trachea midline. CARDIOVASCULAR: Regular rate and rhythm. RESPIRATORY: Clear to auscultation. Breath sounds equal bilaterally. GASTROINTESTINAL: Abdomen soft, nondistended. + Bowel sounds. RLQ tenderness not masses appreciated. MUSCULOSKELETAL: Extremities without clubbing, cyanosis, or edema. No obvious deformities. Ambulating without assistive devices. NEUROLOGICAL: Awake and alert. No obvious cranial nerve deficits. Motor grossly within normal limits. 4/5 muscle strength in the right leg. Normal speech. PSYCHIATRIC: Appropriate mood and affect; insight and judgment normal. Results - Labs CBC & Chem 7: 04/18/18 09:25 04/18/18 09:25 Laboratory Results - last 24 hr 04/17/18 04/17/18 04/17/18 11:10 17:00 17:18 POC Glucose 124 H 58 L 63 L 04/17/18 04/17/18 04/17/18 17:37 18:08 19:34 POC Glucose 71 118 H 274 H 04/17/18 04/18/18 20:15 08:09 POC Glucose 294 H 446 H Microbiology 04/14/18 01:15 Blood - Peripheral Aerobic Blood Culture - Preliminary No growth in 3 days 04/14/18 01:15 Blood - Peripheral Anaerobic Blood Culture - Preliminary No growth in 3 days 04/14/18 01:20 Blood - Peripheral Aerobic Blood Culture - Preliminary No growth in 3 days 04/14/18 01:20 Blood - Peripheral Anaerobic Blood Culture - Final QNS - See aerobic report. Assessment and Plan - Assessment (1) Back pain Code(s): M54.9 - Dorsalgia, unspecified Status: Acute (2) Neuropathy Code(s): G62.9 - Polyneuropathy, unspecified Status: Chronic - Plan 57-year-old female with past medical history significant for COPD, diabetes mellitus, seizure disorder, hepatitis C, lung cancer status post right upper lobectomy and chemotherapy completed in 2011 with ongoing tobacco abuse and chronic pancreatitis who presented appears hospital due to back and right lower extremity pain. Back pain/ right LE and groin pain -MRI from [place] report states "enhancement of the lumbar roots and suspicion of enhancement of the cauda equina. This may be related to inflammatory neuropathy, arachnoiditis or leptomeningeal carcinomatosis". -Chest CT demonstrating moderate COPD changes, 2 nodules in the right upper. One measuring 3mm and the other 6mm. Recommend follow-up CT scan in 6 months. -Thoracic MRI completed 04/13 showing mild dissection of the T11-T12 disc otherwise negative. No clear etiology seen for patient's right flank and leg pain. -Lumbar MRI completed on 04/15 was negative -ABIs completed: ABIs within the normal range with reduction of the left TBI. Unable to calculate right TBI. This raises concern for microangiopathic disease. -CTA with runoff: Moderate aortic plaque with mild distal aortic stenosis at bifurcation, diffuse calcified common iliac artery plaques bilaterally with focal mild to moderate stenosis in the distal left common iliac artery. No noted color flow stenosis. -Carotid Doppler ultrasound negative -Patient is being seen and evaluated by neurosurgery with no found evidence to explain patient's pain. -Vascular surgery also saw and evaluated patient with no hemodynamically significant findings and workup, and off. - PT to treat and eval. PT recommends home with PT -Continue p.o oxycodone, increase frequency to Q4H -Will need to be cleared by neurosurgery prior to DC. -Obtain Abd/Pelvis CT w/oral contrast, patient with low grade temps overnight highest 99.5, WBC count trending down. Anxiety Continue Klonopin 0.5 mg p.o. twice daily. Continue Neurontin 300 mg p.o. 3 times daily. COPD Ongoing tobacco abuse Chronic cough Hx lung cancer s/p RU lobectomy Tobacco cessation counseling. Essential hypertension Lisinopril 5 mg p.o. daily Chronic pancreatitis Continue Creon tid Constipation Bowel regimen Leukocytosis Thrombocytosis - UA negative, Levaquin DC 04/16 - Low grad temps overnight, but WBC trending down. - Check CT of abd/pelvis - PLTs trending up 528-->685-->776, ? reactive, continue to follow order peripheral smear Diabetes mellitus, poorly controlled, hypoglycemia unawareness - Continue ADA diet, Accu-checks with ISS -Hypoglycemic event again around 5pm, asymptomatic -DC Levemir, ISS with tailored coverage to begin when >250 Acute kidney injury likely secondary to recent IV contrast -Increase in creatinine and BUN, start NS at 45 mL's per hour, recheck BMP in the a.m. PROPH: SCDs for DVT prophylaxis. 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
[2018-04-18 09:46] LABS: Baso # (Auto) 0.1 th/mm3 (0.0-0.2); Baso % (Auto) 1.2 % (0.0-2.0); Eos # (Auto) 0.1 th/mm3 (0.0-0.4); Eos % (Auto) 0.6 % (0.0-4.0); Hematocrit 28.4 % (35.0-46.0); Hemoglobin 9.2 gm/dL (11.6-15.3); Mean Corpuscular HGB Conc 32.3 % (32.0-36.0); Mean Corpuscular Hemoglobin 32.5 pg (27.0-34.0); Mean Corpuscular Volume 100.6 fL (80.0-100.0); Mean Platelet Volume 7.7 fL (7.0-11.0); Mono # (Auto) 1.3 th/mm3 (0.0-0.9); Mono % (Auto) 10.8 % (0.0-8.0); Neut # (Auto) 8.4 th/mm3 (1.8-7.7); Neut % (Auto) 70.4 % (16.0-70.0); Platelet Count 776 th/mm3 (150-450); Red Blood Count 2.82 mil/mm3 (4.00-5.30); Red Cell Distribution Width 14.2 % (11.6-17.2); White Blood Count 11.9 th/mm3 (4.0-11.0)
[2018-04-18] MEDS: Insulin NovoLOG Aspart Correctional Sugar Inj SQ SCH ×4 (09:52→20:24)
[2018-04-18] MEDS: Lisinopril 5 MG Tablet PO SCH (09:53)
[2018-04-18] MEDS: Lipase/Protease/Amylase 12/38/60 DR Capsule PO SCH ×3 (09:53→17:04)
[2018-04-18] MEDS: clonazePAM 0.5 MG Tablet PO SCH ×2 (09:53→20:19)
[2018-04-18] MEDS: Senna/Docusate Sodium 8.6/50 MG Tablet PO SCH ×2 (09:53→20:19)
[2018-04-18] MEDS: Gabapentin 300 MG Capsule PO SCH ×3 (09:53→17:04)
[2018-04-18] MEDS: Tiotropium Bromide 18 MCG/ACT Inhaler INH SCH (09:57)
[2018-04-18] MEDS ORDERED: Diatrizoate Meglum/Diatrizoate Sod Liq 9 ML UDC PO ONE (10:00)
[2018-04-18 10:04] LABS: Calcium 8.3 mg/dL (8.5-10.1); Carbon Dioxide 20.4 meq/L (21.0-32.0); Potassium 5.1 meq/L (3.5-5.1)
[2018-04-18] MEDS: Sod Chloride 0.9% Inj 1,000 ML IV.CONT SCH (11:29)
--- NOTE | 2018-04-18 14:19 | CT ---
EXAM DATE: 04/18/2018 1:44 PM EDT AGE/SEX: 57 years / Female INDICATIONS: Right lower abdomen pain for two days. CLINICAL DATA: This is the patient's initial encounter. Patient reports that signs and symptoms have been present for 2 days and indicates a pain score of 7/10. MEDICAL/SURGICAL HISTORY: Pancreatitis. Hepatitis C. Diabetes. Colon resection. Splenectomy. partial pancreatectomy RADIATION DOSE: 4.49 CTDI (mGy) COMPARISON: No prior exams available for comparison. TECHNIQUE: Multiple contiguous axial images were obtained through the abdomen. Images were obtained using multiple row detector helical technique. Using automated exposure control and adjustment of the mA and/or kV according to patient size, radiation dose was kept as low as reasonably achievable to o btain optimal diagnostic quality images. DICOM format image data is available electronically for rev iew and comparison. Lack of IV contrast limits the diagnosis for certain organ pathology. FINDINGS: Lower Lungs: The visualized lower lungs are clear. Liver: The liver has a homogeneous density without space-occupying lesion. There is mild dilation of the biliary tree. Patient is status post a cholecystectomy. The mild dilatation may be reservoir effe ct. Spleen: Surgically removed. Pancreas: Status post a partial pancreatectomy. There are chronic calcifications in the head of the pancreas suggestive of chronic pancreatitis. Kidneys: Normal in size and shape. No evidence of mass or hydronephrosis. Adrenal Glands: Unremarkable. Aorta: Atherosclerotic changes. No aneurysmal dilatation. Bowel/Mesentery: The bowel loops are grossly unremarkable. The cecum and sigmoid colon have a normal configuration. The appendix is unremarkable. There is a moderate amount of stool throughout the enti re colon. There is no evidence of obstruction. No free fluid or free air. No focal inflammatory berry es. Abdominal Wall: There is some nonspecific edema in the subcutaneous soft tissues of the abdominal wa ll suggestive of some anasarca. Retroperitoneum: No evidence of adenopathy in the retrocrural, para-aortic, or deep pelvic regions. Bladder: Contours are smooth. Reproductive Organs: No abnormal masses or calcifications seen. Inguinal: The inguinal region is unremarkable without evidence of adenopathy. Bony Structures: Mild degenerative changes. CONCLUSION: 1. Status post cholecystectomy, splenectomy and partial pancreatectomy with postsurgical changes in the right upper quadrant. There is some mild dilatation of the biliary tree most likely related to th e postsurgical changes and reservoir effect. However, I would recommend correlation with liver labora tory functions. 2. There is some nonspecific edema in the subcutaneous soft tissues of the abdominal wall suggestive of anasarca. 3. The bowel gas pattern is within normal limits with a moderate amount of stool throughout the enti re colon. No inflammatory changes. Electronically signed by: Rico Romero MD 04/18/2018 2:18 PM EDT
[2018-04-18] MEDS: Phenytoin Sodium 100 MG Capsule PO SCH (20:19)
[2018-04-19] MEDS: Insulin NovoLOG Aspart Correctional Sugar Inj SQ SCH ×4 (08:00→20:41)
[2018-04-19] MEDS: Gabapentin 300 MG Capsule PO SCH ×3 (08:02→20:39)
[2018-04-19] MEDS: Lipase/Protease/Amylase 12/38/60 DR Capsule PO SCH ×3 (08:02→17:33)
[2018-04-19] MEDS: Tiotropium Bromide 18 MCG/ACT Inhaler INH SCH (08:02)
[2018-04-19] MEDS: Senna/Docusate Sodium 8.6/50 MG Tablet PO SCH ×2 (08:02→20:38)
[2018-04-19] MEDS: Lisinopril 5 MG Tablet PO SCH (08:02)
[2018-04-19] MEDS: clonazePAM 0.5 MG Tablet PO SCH ×2 (08:02→20:39)
[2018-04-19 08:53] LABS: Anion Gap 13 meq/L (5-15); Blood Urea Nitrogen 26 mg/dL (7-18); Calcium 8.4 mg/dL (8.5-10.1); Carbon Dioxide 22.4 meq/L (21.0-32.0); Chloride 99 meq/L (98-107); Glomerular Filtration Rate 37 mL/min (>89); Potassium 4.9 meq/L (3.5-5.1); Sodium 134 meq/L (136-145)
[2018-04-19] MEDS ORDERED: Insulin Detemir Inj 1,000 UNIT/10 ML Vial SQ SCH ×2 (09:00→13:47)
[2018-04-19 09:10] LABS: Glucose,Random 452 mg/dL (74-106)
[2018-04-19 09:52] LABS: Baso # (Auto) 0.1 th/mm3 (0.0-0.2); Eos # (Auto) 0.1 th/mm3 (0.0-0.4); Eos % (Auto) 0.7 % (0.0-4.0); Hematocrit 28.5 % (35.0-46.0); Lymph # (Auto) 2.2 th/mm3 (1.0-4.8); Lymph % (Auto) 18.1 % (9.0-44.0); Mean Corpuscular HGB Conc 31.8 % (32.0-36.0); Mean Corpuscular Hemoglobin 31.8 pg (27.0-34.0); Mean Corpuscular Volume 100.1 fL (80.0-100.0); Mean Platelet Volume 8.1 fL (7.0-11.0); Mono # (Auto) 1.3 th/mm3 (0.0-0.9); Mono % (Auto) 10.7 % (0.0-8.0); Neut # (Auto) 8.5 th/mm3 (1.8-7.7); Neut % (Auto) 69.5 % (16.0-70.0); Platelet Count 727 th/mm3 (150-450); Red Blood Count 2.84 mil/mm3 (4.00-5.30); Red Cell Distribution Width 14.5 % (11.6-17.2); White Blood Count 12.2 th/mm3 (4.0-11.0)
[2018-04-19 11:33] LABS: Alanine Aminotransferase 13 U/L (10-53); Albumin 1.9 g/dL (3.4-5.0); Alkaline Phosphatase 104 U/L (45-117); Aspartate Aminotransferase 15 U/L (15-37); Total Protein 6.5 g/dL (6.4-8.2)
[2018-04-19] MEDS: Sod Chloride 0.9% Inj 1,000 ML IV.CONT SCH (12:09)
[2018-04-19] MEDS ORDERED: Insulin Detemir Inj 1,000 UNIT/10 ML Vial SQ ONE (13:46)
--- NOTE | 2018-04-19 13:47 | P.PN ---
Subjective Interval history: Follow-up visit for right groin pain and diabetes mellitus with hyperglycemia. Patient seen and examined resting in bed comfortably appears to be in no acute distress. Nurse reports critically high blood sugar this morning in the 500s. Patient denies any nausea, vomiting, diarrhea, cough, shortness of breath or chest pain. Continues to complain of right groin pain although this has improved some. She also has been ambulating. Physical Exam Vital signs: Vital Signs 04/18/18 16:00 04/18/18 19:43 04/18/18 23:00 Temperature 97.7 F 98.3 F 99.0 F Pulse Rate 99 H 92 H 88 Respiratory Rate 18 18 18 Blood Pressure 123/60 124/51 L 125/59 L Pulse Oximetry 97 98 97 04/19/18 03:29 04/19/18 08:00 Temperature 99.0 F 97.6 F Pulse Rate 101 H 95 H Respiratory Rate 18 18 Blood Pressure 129/62 131/66 Pulse Oximetry 96 95 Intake & Output 04/18/18 04/19/18 04/19/18 18:59 06:59 18:59 Intake Total 900 / 900 480 / 480 1000 / 1000 Balance 900 / 900 480 / 480 1000 / 1000 Weight 35 kg Intake: IV 1000 / 1000 NS Inj 1,000 ML @ 42 mls/hr IV. 1000 / 1000 CONT .[id number] [facility] Rx#:[id number] Oral 900 / 900 480 / 480 Other: # Voids 3 4 Date of Last Bowel Movement 04/17/18 04/19/18 # Bowel Movements 4 Narrative: GENERAL: Thin female resting in bed in no acute distress. SKIN: Warm and dry. HEAD: Atraumatic. Normocephalic. EYES: Pupils equal and round. No scleral icterus. No injection or drainage. ENT: No nasal bleeding or discharge. Mucous membranes pink and moist. NECK: Trachea midline. CARDIOVASCULAR: Regular rate and rhythm. RESPIRATORY: Clear to auscultation. Breath sounds equal bilaterally. GASTROINTESTINAL: Abdomen soft, nondistended. + Bowel sounds. No abdominal tenderness. MUSCULOSKELETAL: Extremities without clubbing, cyanosis, or edema. No obvious deformities. Ambulating without assistive devices. NEUROLOGICAL: Awake and alert. No obvious cranial nerve deficits. Motor grossly within normal limits. 4/5 muscle strength in the right leg. Normal speech. PSYCHIATRIC: Appropriate mood and affect; insight and judgment normal. Results - Labs CBC & Chem 7: 04/19/18 07:08 04/19/18 07:08 Laboratory Results - last 24 hr 04/18/18 04/18/18 04/18/18 16:53 18:54 20:12 WBC RBC Hgb Hct MCV MCH MCHC RDW Plt Count MPV Neut % (Auto) Lymph % (Auto) [place] % (Auto) Eos % (Auto) Baso % (Auto) Neut # (Auto) Lymph # (Auto) [place] # (Auto) Eos # (Auto) Baso # (Auto) WBC Differential Differential Comment Sodium Potassium Chloride Carbon Dioxide Anion Gap BUN Creatinine Estimated GFR POC Glucose 406 H 312 H 250 H Random Glucose Calcium Prot Corrected Calcium Total Bilirubin AST ALT Alkaline Phosphatase Total Protein Albumin 04/18/18 04/19/18 04/19/18 21:42 07:08 07:08 WBC RBC Hgb Hct MCV MCH MCHC RDW Plt Count 727 H MPV Neut % (Auto) Lymph % (Auto) [place] % (Auto) Eos % (Auto) Baso % (Auto) Neut # (Auto) Lymph # (Auto) [place] # (Auto) Eos # (Auto) Baso # (Auto) WBC Differential Differential Comment Sodium 134 L Potassium 4.9 Chloride 99 Carbon Dioxide 22.4 Anion Gap 13 BUN 26 H Creatinine 1.45 H Estimated GFR 37 L POC Glucose 188 H Random Glucose 452 H* Calcium 8.4 L Prot Corrected Calcium Total Bilirubin 0.2 AST 15 ALT 13 Alkaline Phosphatase 104 Total Protein 6.5 Albumin 1.9 L 04/19/18 04/19/18 04/19/18 07:08 07:08 07:59 WBC 12.2 H RBC 2.84 L Hgb 9.0 L Hct 28.5 L MCV 100.1 H MCH 31.8 MCHC 31.8 L RDW 14.5 Plt Count 727 H MPV 8.1 Neut % (Auto) 69.5 Lymph % (Auto) 18.1 [place] % (Auto) 10.7 H Eos % (Auto) 0.7 Baso % (Auto) 1.0 Neut # (Auto) 8.5 H Lymph # (Auto) 2.2 [place] # (Auto) 1.3 H Eos # (Auto) 0.1 Baso # (Auto) 0.1 WBC Differential . Differential Comment Auto diff final Sodium Cancelled Potassium Cancelled Chloride Cancelled Carbon Dioxide Cancelled Anion Gap Cancelled BUN Cancelled Creatinine Cancelled Estimated GFR Cancelled POC Glucose 491 H* Random Glucose Cancelled Calcium Cancelled Prot Corrected Calcium Cancelled Total Bilirubin Cancelled AST Cancelled ALT Cancelled Alkaline Phosphatase Cancelled Total Protein Cancelled Albumin Cancelled 04/19/18 04/19/18 08:01 12:09 WBC RBC Hgb Hct MCV MCH MCHC RDW Plt Count MPV Neut % (Auto) Lymph % (Auto) [place] % (Auto) Eos % (Auto) Baso % (Auto) Neut # (Auto) Lymph # (Auto) [place] # (Auto) Eos # (Auto) Baso # (Auto) WBC Differential Differential Comment Sodium Potassium Chloride Carbon Dioxide Anion Gap BUN Creatinine Estimated GFR POC Glucose 505 H* 322 H Random Glucose Calcium Prot Corrected Calcium Total Bilirubin AST ALT Alkaline Phosphatase Total Protein Albumin Microbiology 04/14/18 01:15 Blood - Peripheral Aerobic Blood Culture - Final No growth in 5 days 04/14/18 01:15 Blood - Peripheral Anaerobic Blood Culture - Final No growth in 5 days 04/14/18 01:20 Blood - Peripheral Aerobic Blood Culture - Final No growth in 5 days 04/14/18 01:20 Blood - Peripheral Anaerobic Blood Culture - Final QNS - See aerobic report. - Imaging Impressions Abdomen/Pelvis CT 04/18/18 00:00 CONCLUSION: 1. Status post cholecystectomy, splenectomy and partial pancreatectomy with postsurgical changes in the right upper quadrant. There is some mild dilatation of the biliary tree most likely related to the postsurgical changes and reservoir effect. However, I would recommend correlation with liver laboratory functions. 2. There is some nonspecific edema in the subcutaneous soft tissues of the abdominal wall suggestive of anasarca. 3. The bowel gas pattern is within normal limits with a moderate amount of stool throughout the entire colon. No inflammatory changes. Assessment and Plan - Assessment (1) Back pain Code(s): M54.9 - Dorsalgia, unspecified Status: Acute (2) Neuropathy Code(s): G62.9 - Polyneuropathy, unspecified Status: Chronic - Plan 57-year-old female with past medical history significant for COPD, diabetes mellitus, seizure disorder, hepatitis C, lung cancer status post right upper lobectomy and chemotherapy completed in 2011 with ongoing tobacco abuse and chronic pancreatitis who presented appears hospital due to back and right lower extremity pain. Back pain/ right LE and groin pain -MRI from [facility] report states "enhancement of the lumbar roots and suspicion of enhancement of the cauda equina. This may be related to inflammatory neuropathy, arachnoiditis or leptomeningeal carcinomatosis". -Chest CT demonstrating moderate COPD changes, 2 nodules in the right upper. One measuring 3mm and the other 6mm. Recommend follow-up CT scan in 6 months. -Thoracic MRI completed 04/13 showing mild dissection of the T11-T12 disc otherwise negative. No clear etiology seen for patient's right flank and leg pain. -Lumbar MRI completed on 04/15 was negative -ABIs completed: ABIs within the normal range with reduction of the left TBI. Unable to calculate right TBI. This raises concern for microangiopathic disease. -CTA with runoff: Moderate aortic plaque with mild distal aortic stenosis at bifurcation, diffuse calcified common iliac artery plaques bilaterally with focal mild to moderate stenosis in the distal left common iliac artery. No noted color flow stenosis. -Carotid Doppler ultrasound negative -Patient is being seen and evaluated by neurosurgery with no found evidence to explain patient's pain. -Vascular surgery also saw and evaluated patient with no hemodynamically significant findings and workup, and off. - PT to treat and eval. PT recommends home with PT -Continue p.o oxycodone, increase frequency to Q4H -Neurosurgery last saw patient on 05/12 and reviewed MRI of L-spine with no evidence of neural impingement or canal stenosis because patient's pain. -CT of abd/pelvis dilatation of biliary tree likely related to surgical changes , nonspecific edema in the subcutaneous soft tissues of the abdominal wall suggesting anasarca moderate amount of stool throughout entire colon without inflammatory changes. LFTs checked today WNL. -So far imaging studies have been negative to explain groin pain. This has improved and patient is ambulatory. Denies any urinary, fecal incontinence, or saddle anesthesia. Anxiety Continue Klonopin 0.5 mg p.o. twice daily. Continue Neurontin 300 mg p.o. 3 times daily. COPD Ongoing tobacco abuse Chronic cough Hx lung cancer s/p RU lobectomy Tobacco cessation counseling. Essential hypertension -Discontinue lisinopril due to JOANA -Can start PRN clonidine if hypertensive Chronic pancreatitis Continue Creon tid Constipation Bowel regimen Leukocytosis Thrombocytosis - UA negative, Levaquin DC 10/4 - Low grad temps overnight, but WBC count stable. - CT of abd/pelvis essentially negative - PLTs 528-->685-->776-->727, possibly reactive. Patient can follow-up with PCP for ongoing monitoring/peripheral blood smear. Diabetes mellitus, poorly controlled, hypoglycemia unawareness - Continue ADA diet, Accu-checks with ISS -Hyperglycemia this morning with blood sugars in the 500s. Start Levemir 5 units with low-dose insulin sliding scale -Covered blood sugars 1>250 Acute kidney injury likely secondary to recent IV contrast -Increase IV fluids, NS @75ml/hr, recheck BMP in a.m., DC Lisinopril PROPH: SCDs for DVT prophylaxis. Discussed Condition With: Patient, RN, Discharge Planning: DC when BS stabilized, so far no surgeries workup has been negative.
[2018-04-19] MEDS: Phenytoin Sodium 100 MG Capsule PO SCH (20:38)
[2018-04-19 20:48] VITALS: O2SAT 96
[2018-04-20 07:23] LABS: Calcium 8.3 mg/dL (8.5-10.1); Carbon Dioxide 25.7 meq/L (21.0-32.0); Potassium 4.3 meq/L (3.5-5.1)
--- NOTE | 2018-04-20 08:09 | P.DS ---
Date of admission: 04/10/18 22:11 Primary care physician: UNKNOWN Attending physician on discharge: Wilbert Jeff Anticipated date of discharge: 04/20/18 Brief History from admission: 57-year-old female with past medical history of COPD, diabetes, seizure disorder, hepatitis C, lung cancer status post right upper lobectomy and chemotherapy completed in 2011, ongoing tobacco abuse, chronic pancreatitis , history of alcohol dependence now in remission since 1995. She was transferred to [facility] from [facility] due to the concern for cauda equina. She was admitted at [facility] on 04/09 after presenting with 2-day history of right-sided back pain radiating down her right leg. She states that she woke up with the pain. Denies trauma. Says she has been able to ambulate on it even while at [facility] but when she is trying to lifted up her leg to get into bed she uses her arms to assist with lifting. She denies urinary retention or incontinence, fecal incontinence, saddle paresthesias. She denies history of similar pain. Denies headache. Had temp 101 upon admission to [facility]. She has been on Levaquin for UTI. DS: Diagnosis - Discharge Diagnosis (1) Back pain Status: Acute (2) Neuropathy Status: Chronic DS: Medications - Discharge Medications Prescriptions: gabapentin [Neurontin] 300 mg PO BID #60 cap insulin aspart U-100 [Novolog U-100 Insulin aspart] 0 unit SUBCUT ACHS #15 ml insulin detemir U-100 [Levemir U-100 Insulin] 5 unit SUBCUT DAILY #15 ml [id number] [Creon] 1 cap PO TID #90 cap oxycodone 5 mg PO Q4H PRN #18 tab PRN Reason: Pain 6-10 phenytoin sodium extended 300 mg PO HS #30 cap tiotropium bromide [Spiriva with HandiHaler] 18 mcg INH DAILY #1 inhaler DS: Summary Hospital Course: 57-year-old female with past medical history significant for COPD, diabetes mellitus, seizure disorder, hepatitis C, lung cancer status post right upper lobectomy and chemotherapy completed in 2011 with ongoing tobacco abuse and chronic pancreatitis who presented originally to [facility] with complaints of back and right lower extremity pain. She underwent MRI from [place] and report reported "enhancement of the lumbar roots and suspicion of enhancement of the cauda equina. This may be related to inflammatory neuropathy , arachnoiditis or leptomeningeal carcinomatosis". Patient was transferred to [facility] for further neurosurgical evaluation. The following images done: -Thoracic MRI completed 04/13 showing mild dissection of the T11-T12 disc otherwise negative. No clear etiology seen for patient's right flank and leg pain. -Lumbar MRI completed on 04/15 was negative -ABIs completed: ABIs within the normal range with reduction of the left TBI. Unable to calculate right TBI. This raises concern for microangiopathic disease. -CTA with runoff: Moderate aortic plaque with mild distal aortic stenosis at bifurcation, diffuse calcified common iliac artery plaques bilaterally with focal mild to moderate stenosis in the distal left common iliac artery. No noted color flow stenosis. -Carotid Doppler ultrasound negative Patient was seen and evaluated by neurosurgery who also ordered MRI of L-spine, per neurosurgery there was no evidence of neural impingement or canal stenosis to cause patient's pain. Patient was also evaluated by vascular surgery who found no hemodynamically significant findings and workup, and signed off. Patient completed treatment for UTI and recheck UA was negative. She had several low-grade temperatures for which he underwent CT of abdomen and pelvis which demonstrated dilatation of biliary tree likely related to surgical changes , nonspecific edema in the subcutaneous soft tissues of the abdominal wall suggesting anasarca moderate amount of stool throughout entire colon without inflammatory changes. LFTs were checked and were within normal limits. Pain control was established with oral Percocet and seen and evaluated by physical therapy services. She ambulates without assistance of any devices and physical therapy recommended home with home health PT. Patient's pain did improve during her hospitalization. Patient also had acute kidney injury for which she was treated with short-term IV hydration and creatinine improved. Thrombocytosis was also noted possibly reactive initially trended up and then dropped down to 727. Discussed with patient that she will need to follow-up with her primary for ongoing monitoring. During her hospitalization she also had episodes of hypoglycemia for which her insulin coverage and Levemir dosing were adjusted. Discussed with patient new dosing of insulin along with need for required labs and CT scan in the future. Patient verbalized understanding appointment coming up with her primary care physician. Discussed 3 days worth of pain medication, verbalized understanding and is agreeable with discharge. This morning patient is seen and examined resting in bed comfortably in no acute distress. She denies any fevers, chills, nausea, vomiting, diarrhea, cough, shortness of breath, abdominal pain or discomfort. She denies any fecal , urinary incontinence or saddle anesthesia. Has been able to ambulate without a walker or assistive devices. [employer] checked, patient filled Rx for Clonazepam 0.5mg tabs on 04/01 with quantity of 60. No Rx for this provided. - Time Spent with Patient Total time spent providing and/or coordinating discharge services: Less than 30 minutes - Quality: VTE Deep Vein Thrombosis/Pulmonary Embolism Present on Admission: No Exam Vital signs: Vital Signs 04/19/18 08:00 04/19/18 12:00 04/19/18 16:00 Temperature 97.6 F 97.1 F L 99.1 F Pulse Rate 95 H 83 86 Respiratory Rate 18 18 18 Blood Pressure 131/66 117/57 L 119/56 L Pulse Oximetry 95 97 97 04/19/18 20:00 04/19/18 21:30 04/20/18 00:00 Temperature 98.7 F 98.8 F Pulse Rate 92 H 89 Respiratory Rate 18 Blood Pressure 135/62 125/58 L Pulse Oximetry 96 96 04/20/18 04:00 Temperature Pulse Rate Respiratory Rate 18 Blood Pressure Pulse Oximetry Intake & Output 04/19/18 04/20/18 04/20/18 18:59 06:59 18:59 Intake Total 1600 / 1600 240 / 240 Balance 1600 / 1600 240 / 240 Weight 35 kg Intake: IV 1000 / 1000 NS Inj 1,000 ML @ 42 mls/hr IV. 1000 / 1000 CONT .[id number] [facility] Rx#:[id number] Oral 600 / 600 240 / 240 Other: # Voids 3 2 Date of Last Bowel Movement 04/19/18 04/19/18 # Bowel Movements 1 Narrative: GENERAL: Thin female resting in bed in no acute distress. SKIN: Warm and dry. HEAD: Atraumatic. Normocephalic. EYES: Pupils equal and round. No scleral icterus. No injection or drainage. ENT: No nasal bleeding or discharge. Mucous membranes pink and moist. NECK: Trachea midline. CARDIOVASCULAR: Regular rate and rhythm. RESPIRATORY: Clear to auscultation. Breath sounds equal bilaterally. GASTROINTESTINAL: Abdomen soft, nondistended. + Bowel sounds. No abdominal tenderness. MUSCULOSKELETAL: Extremities without clubbing, cyanosis, or edema. No obvious deformities. Ambulating without assistive devices. NEUROLOGICAL: Awake and alert. No obvious cranial nerve deficits. Motor grossly within normal limits. 4/5 muscle strength in the right leg. Normal speech. PSYCHIATRIC: Appropriate mood and affect; insight and judgment normal. Results Procedures completed during hospitalization: None Labs on day of discharge: Labs from last 24 hours 04/20/18 04/20/18 04/19/18 05:57 04:24 20:14 WBC RBC Hgb Hct MCV MCH MCHC RDW Plt Count MPV Neut % (Auto) Lymph % (Auto) [place] % (Auto) Eos % (Auto) Baso % (Auto) Neut # (Auto) Lymph # (Auto) [place] # (Auto) Eos # (Auto) Baso # (Auto) WBC Differential Differential Comment Sodium 137 Potassium 4.3 Chloride 102 Carbon Dioxide 25.7 Anion Gap 9 BUN 20 H Creatinine 1.11 H Estimated GFR 50 L POC Glucose 114 H 139 H Random Glucose 152 H D Calcium 8.3 L Prot Corrected Calcium Total Bilirubin AST ALT Alkaline Phosphatase Total Protein Albumin 04/19/18 04/19/18 04/19/18 17:37 12:09 08:01 WBC RBC Hgb Hct MCV MCH MCHC RDW Plt Count MPV Neut % (Auto) Lymph % (Auto) [place] % (Auto) Eos % (Auto) Baso % (Auto) Neut # (Auto) Lymph # (Auto) [place] # (Auto) Eos # (Auto) Baso # (Auto) WBC Differential Differential Comment Sodium Potassium Chloride Carbon Dioxide Anion Gap BUN Creatinine Estimated GFR POC Glucose 190 H 322 H 505 H* Random Glucose Calcium Prot Corrected Calcium Total Bilirubin AST ALT Alkaline Phosphatase Total Protein Albumin 04/19/18 04/19/18 04/19/18 07:59 07:08 07:08 WBC 12.2 H RBC 2.84 L Hgb 9.0 L Hct 28.5 L MCV 100.1 H MCH 31.8 MCHC 31.8 L RDW 14.5 Plt Count 727 H MPV 8.1 Neut % (Auto) 69.5 Lymph % (Auto) 18.1 [place] % (Auto) 10.7 H Eos % (Auto) 0.7 Baso % (Auto) 1.0 Neut # (Auto) 8.5 H Lymph # (Auto) 2.2 [place] # (Auto) 1.3 H Eos # (Auto) 0.1 Baso # (Auto) 0.1 WBC Differential . Differential Comment Auto diff final Sodium Cancelled Potassium Cancelled Chloride Cancelled Carbon Dioxide Cancelled Anion Gap Cancelled BUN Cancelled Creatinine Cancelled Estimated GFR Cancelled POC Glucose 491 H* Random Glucose Cancelled Calcium Cancelled Prot Corrected Calcium Cancelled Total Bilirubin Cancelled AST Cancelled ALT Cancelled Alkaline Phosphatase Cancelled Total Protein Cancelled Albumin Cancelled 04/19/18 04/19/18 07:08 07:08 WBC RBC Hgb Hct MCV MCH MCHC RDW Plt Count 727 H MPV Neut % (Auto) Lymph % (Auto) [place] % (Auto) Eos % (Auto) Baso % (Auto) Neut # (Auto) Lymph # (Auto) [place] # (Auto) Eos # (Auto) Baso # (Auto) WBC Differential Differential Comment Sodium 134 L Potassium 4.9 Chloride 99 Carbon Dioxide 22.4 Anion Gap 13 BUN 26 H Creatinine 1.45 H Estimated GFR 37 L POC Glucose Random Glucose 452 H* Calcium 8.4 L Prot Corrected Calcium Total Bilirubin 0.2 AST 15 ALT 13 Alkaline Phosphatase 104 Total Protein 6.5 Albumin 1.9 L - Impressions ITS Impressions Chest CT 04/11/18 00:00 CONCLUSION: 1. Moderate COPD changes. 2. There are 2 nodules in the right upper lobe one measuring 3 mm the other measuring 6 mm. These are nonspecific. Follow-up CT exam in 6 months to document stability would be warranted. Thoracic Spine MRI 04/13/18 00:00 CONCLUSION: 1. Mild desiccation of the T11-T12 disc otherwise negative. I do not see an etiology for the patient's right flank and leg pain. 2. Signal intensity in the cord is normal. Extremity Arterial Study 04/13/18 12:17 CONCLUSION: 1. ABIs within the normal range with reduction of the left TBI. Unable to calculate right TBI. This raises concern for microangiopathic disease. Lumbar Spine MRI 04/15/18 00:00 CONCLUSION: 1. Negative MRI of the lumbar spine. 2. I do not see an etiology of patient's radicular symptoms. Aorta w/Runoff CTA 04/15/18 16:15 CONCLUSION: 1. Moderate aortic plaque with mild distal aortic stenosis at the bifurcation. 2. Diffuse calcified common iliac artery plaques bilaterally with focal mild to moderate stenosis in the distal left common iliac artery. 3. No outflow stenosis. 4. Three-vessel runoff bilaterally. 5. Multiple ancillary findings, as above. Carotid Doppler Study 04/16/18 00:00 CONCLUSION: 1. Right Internal Carotid Artery: No hemodynamically significant stenosis. 2. Left Internal Carotid Artery: No hemodynamically significant stenosis. Abdomen/Pelvis CT 04/18/18 00:00 CONCLUSION: 1. Status post cholecystectomy, splenectomy and partial pancreatectomy with postsurgical changes in the right upper quadrant. There is some mild dilatation of the biliary tree most likely related to the postsurgical changes and reservoir effect. However, I would recommend correlation with liver laboratory functions. 2. There is some nonspecific edema in the subcutaneous soft tissues of the abdominal wall suggestive of anasarca. 3. The bowel gas pattern is within normal limits with a moderate amount of stool throughout the entire colon. No inflammatory changes. Discharge Plan - Discharge Disposition Patient Disposition: W/Home Health Service - Discharge Condition Condition: Good - Discharge Order Discharge Orders: Discharge Order (Routine); Ordered 04/20/18 Ordered By: Gerhard Child - Physicians Team Primary Care Provider: UNKNOWN, Attending Provider: Wilbert Jeff Other Providers: Heri Fairchild MD ; [employer],Insurance ; Sobeida Urban MD - Rxs /Orders / Referrals /Forms Prescriptions: New gabapentin [Neurontin] 300 mg Capsule 300 mg PO BID Qty: 60 RF: 0 insulin aspart U-100 [Novolog U-100 Insulin aspart] 100 unit/mL Solution 0 unit subcut ACHS Qty: 15 RF: 0 insulin detemir U-100 [Levemir U-100 Insulin] 100 unit/mL Solution 5 unit subcut DAILY Qty: 15 RF: 0 [id number] [Creon] 12,000-38,000 -60,000 unit Capsule,Delayed Release(Dr/Ec) 1 cap PO TID Qty: 90 RF: 0 oxycodone 5 mg Tablet 5 mg PO Q4H PRN (Reason: Pain 6-10) Qty: 18 RF: 0 phenytoin sodium extended 100 mg Capsule 300 mg PO HS Qty: 30 RF: 0 tiotropium bromide [Spiriva with HandiHaler] 18 mcg Capsule, W/Inhalation Device 18 mcg INH DAILY Qty: 1 RF: 0 Continue clonazepam 0.5 mg BID Multi Vitamin 1 tab/day trazodone 100 mg Discontinued Creon 2,400 units Dilantin 300 mg HS Humalog U-100 Insulin See Protocol subcut Lantus U-100 Insulin 10 units QAM Ambulatory Orders / Order Sets / DME: CT chest wo IV con (Routine) Timeframe: 6 Months Location: Determined by Patient Ordered By: Gerhard Child Basic Metabolic Panel (Routine) Timeframe: 1 Week Location: Determined by Patient Ordered By: Gerhard Child Complete Blood Count with Diff (Routine) Timeframe: 1 Week Location: Determined by Patient Ordered By: Gerhard Child Phenytoin (Dilantin) (Routine) Timeframe: 1 Week Location: Determined by Patient Ordered By: Gerhard Child Referrals: UNKNOWN, [Primary Care Provider] - See Instructions - Discharge Instructions Patient Printed Instructions: How to Check Your Blood Sugar (DC), Type 2 Diabetes in Adults (GEN), Laparoscopic Cholecystectomy (DC), Narcotic Pain Management (DC) Additional Instructions: Take medications as directed. Follow up as instructed by your providers. - Post Discharge Care Plan Care Plan Goals: Your Health Problems: Goals to Promote Your Health: * To prevent worsening of your condition * To maintain your health at the optimal level Directions to Meet Your Goals: * Take your medications as prescribed * Follow your dietary instruction * Follow activity as directed * Keep your appointments as scheduled * Take your immunizations and boosters as scheduled * If your symptoms worsen call your PCP * If no PCP go to Urgent Care or Emergency Room Smoking is dangerous to your health. Avoid second hand smoke. You may reach the 24-hour crisis hotline for domestic abuse at .
[2018-04-20 08:25] VITALS: BP 136/63; PULSE 92; RESP 16; TEMP 98.3
[2018-04-20] MEDS: Lipase/Protease/Amylase 12/38/60 DR Capsule PO SCH (08:48)
[2018-04-20] MEDS: clonazePAM 0.5 MG Tablet PO SCH (08:50)
[2018-04-20] MEDS: Gabapentin 300 MG Capsule PO SCH (08:50)
[2018-04-20] MEDS: Senna/Docusate Sodium 8.6/50 MG Tablet PO SCH (08:50)
== END 2018-04-20 10:03 | disposition home health service (06) ==
LOC: N03 22:11 → N06 04-12 00:17
PROVIDERS: ADMIT Internal Medicine; ATTEND Internal Medicine